=== PATIENT | male | born 1970 | race Asian ===

== ENCOUNTER 2022-05-31 16:10 | Inpatient (IN) | payer BC ==
--- NOTE | 2022-05-31 16:51 | ED ---
General Adult HPI - General Chief complaint: Neuro Symptoms/Deficit Stated complaint: neuro issue, sinus infection Time Seen by Provider: 05/31/22 16:15 Source: patient, family, RN notes reviewed, old records reviewed Mode of arrival: ambulatory Limitations: no limitations - History of Present Illness Initial comments: Patient is a 52-year-old male who presents emergency Department complaining of sinus infection, as well as neurological symptoms. He has a history of chronic sinus infections. Known small sinuses on the right. Has been doing with on again off again symptoms of sinus infection such as congestion, rhinorrhea for the last few months. Typical antibiotic should not improving his symptoms. May receive a balloon dilation by his ENT doctor Estephanie. However today at approximately 1 PM when he finally spoke and talked with someone at his home, his family noticed she was having some slurred speech as well as left sided facial droop. This is abnormal for him. States he awoke this morning feeling "different" noticed some sensory numbness over the left arm and he kind of ignored it. States however when he first spoke which was at approximately 1 PM he definitely had symptoms. Had not spoken before then. Did sleep until 10 or 11 AM. Last known well was 11 PM last night. Has no other acute complaints at this time. Denies any history of trauma to the head. Denies any blood thinner use. No other medical issues otherwise. Presents for further evaluation at this time. - Related Data Home Medications Medication Instructions Recorded Confirmed Azelastine HCl [Astelin Nasal 137 mcg NASAL DAILY 05/31/22 05/31/22 [place]] Loratadine [Claritin] 10 mg PO DAILY 05/31/22 05/31/22 Allergies Allergy/AdvReac Type Severity Reaction Status Date / Time levofloxacin [From Levaquin] Allergy Dyspnea Verified 05/31/22 17:13 Review of Systems ROS Statement: Those systems with pertinent positive or pertinent negative responses have been documented in the HPI. Review of Systems: CONST: Denies fever EYES: Denies blurry vision ENT: Endorses Sinus congestion C/V: Denies Chest pain RESP: Denies shortness of breath GI: Denies abdominal pain : Denies dysuria SKIN: Denies rash. MSK: Denies joint pain. NEURO: Denies headache ROS Other: All systems not noted in ROS Statement are negative. Past Medical History Past Medical History: No Reported History History of Any Multi-Drug Resistant Organisms: None Reported Additional Past Surgical History / Comment(s): sinus surgery Past Psychological History: No Psychological Hx Reported Smoking Status: Current every day smoker Past Alcohol Use History: None Reported Past Drug Use History: None Reported General Exam - General Exam Comments Initial Comments: General: Appears in no acute distress. HEAD: Normal with no signs of head trauma. EYES: PERRLA, EOMI, conjunctiva normal, no discharge. Pupils are 3 mm and equal bilaterally. ENT: Hearing grossly intact, normal oropharynx. RESPIRATORY: Clear breath sounds bilaterally. No wheezes, rales, or rhonchi. C/V: Regular rate and rhythm. S1 and S2 auscultated, no edema, peripheral puls es 2+ and intact throughout ABD: Abd is soft, nontender, nondistended EXT: Normal range of motion, no obvious deformity SKIN: No rashes or lesions observed on exposed skin. NEURO: Alert and oriented 4. No focal strength deficits. NIH is 4, with 1 point for left arm sensory deficits to light touch, 2 points for left-sided lower facial droop with sparing of the forehead, 1 point for dysarthria. Last known well was 2300 on 05/30/2022 Limitations: no limitations Course Vital Signs 05/31/22 05/31/22 05/31/22 16:12 16:41 17:11 Temperature 98.2 F Pulse Rate 100 98 85 Respiratory 20 18 17 Rate Blood Pressure 178/101 173/108 171/109 O2 Sat by Pulse 100 98 99 Oximetry 05/31/22 05/31/22 05/31/22 17:26 17:41 17:56 Temperature Pulse Rate 90 86 95 Respiratory 20 18 15 Rate Blood Pressure 172/109 185/115 O2 Sat by Pulse 100 99 100 Oximetry 05/31/22 05/31/22 05/31/22 18:11 18:26 19:30 Temperature Pulse Rate 96 91 77 Respiratory 20 19 18 Rate Blood Pressure 166/108 165/105 O2 Sat by Pulse 100 100 100 Oximetry 05/31/22 21:00 Temperature Pulse Rate 96 Respiratory 20 Rate Blood Pressure 158/96 O2 Sat by Pulse 99 Oximetry Medical Decision Making - Medical Decision Making Was pt. sent in by a medical professional or institution (, PA, PRESSURE SUPERVISOR, urgent care, hospital, or assisted...) When possible be specific @ -No Did you speak to anyone other than the patient for history (EMS, parent, family, police, friend...)? What history was obtained from this source @ -No Did you review nursing and triage notes (agree or disagree)? Why? @ -I reviewed and agree with nursing and triage notes Were old charts reviewed (outside hosp., previous admission, EMS record, old EKG, old radiological studies, urgent care reports/EKG's, assisted records)? Report findings @ -No old charts were reviewed Differential Diagnosis (chest pain, altered mental status, abdominal pain women, abdominal pain men, vaginal bleeding, weakness, fever, dyspnea, syncope, headache, dizziness, GI bleed, back pain, seizure, CVA, palpatations, mental health, musculoskeletal)? @ -Differential CVA Ischemic stroke, hemorrhagic stroke, brain tumor, sinus infection, atypical migraine, Wernicke's encephalopathy, seizure, multiple sclerosis, meningitis, encephalitis, hypoglycemia, Guillain-Medel, electrolytes disturbance, myasthenia gravis.... This is not meant to be an all-inclusive list EKG interpreted by me (3pts min.). @ -As above X-rays interpreted by me (1pt min.). @ -Chest x-ray revealed no obvious acute pulmonary process. Patient does have some stranding present, concern for possible fibrosis. No respiratory distress. CT interpreted by me (1pt min.). @ -CT brain reveals an old chronic left frontal infarct but no acute infarct. CT angiogram revealed no acute blockage or obstruction. U/S interpreted by me (1pt. min.). @ -None done What testing was considered but not performed or refused? (CT, X-rays, U/S, labs)? Why? @ -None What meds were considered but not given or refused? Why? @ -None Did you discuss the management of the patient with other professionals (professionals i.e. DrNika, PA, PRESSURE SUPERVISOR, lab, RT, psych nurse, psychotherapist social worker, photographs curator, teacher, weapons officer naval activity, egg caser)? Give summary @ -No Was smoking cessation discussed for >3mins.? @ -No Was critical care preformed (if so, how long)? @ -Yes, 35 minutes. Were there social determinants of health that impacted care today? How? (Homelessness, low income, unemployed, alcoholism, drug addiction, transportation, low edu. Level, literacy, decrease access to med. care, residential, rehab)? @ -No Was there de-escalation of care discussed even if they declined (Discuss DNR or withdrawal of care, Hospice)? DNR status @ -No What co-morbidities impacted this encounter? (DM, HTN, Smoking, COPD, CAD, Cancer, CVA, ARF, Chemo, Hep., AIDS, mental health diagnosis, sleep apnea, morbid obesity)? @ -None Was patient admitted / discharged? Hospital course, mention meds given and route, prescriptions, significant lab abnormalities, going to OR and other pertinent info. @ -Based on the patient's presentation and physical exam, he presents with strokelike symptoms. Last known was 11 PM last night on 05/30/22. Appears to have awoken this morning with the symptoms. NIH is 4. TPA will not be administered as risks far outweigh the benefits at this point. No significant past medical history otherwise mins chronic sinus infections. Code stroke was activated. Stroke labs were obtained. We will obtain CT imaging. Patient was in agreement with this plan. Vital signs are remarkable for mild hypertension with a blood pressure 178/101.This patient does have sparing of the forehead, I do not believe this is Guzman's palsy. I discussed the workup with neuro interventionalist flotation tank operator Dr. Astudillo. He was in agreement with the plan. Medical management if imaging is negative. Imaging is negative for any acute stroke or intracranial process. Radiology does see a remote area of possible old infarct in the left frontal lobe. Chronic sinusitis present. No acute infarcts observed. CT angiogram negative for any acute obstruction. Chest x-ray unremarkable. Patient's laboratory studies are remarkable for a mild leukocytosis of 12. Troponin undetectable. Glucose within normal limits. Covid, flu, RSV negative. Remainder of labs are within acceptable limits. On reevaluation, neuro exam is unchanged. Patient will be admitted to the hospital for neuro eval. He was in agreement this plan. Dr. Gross of neurology was consulted. He was given 325 mg of aspirin. We discussed his workup. He was in agreement this plan. I spoke with the admitting physician, BALTAZAR Renteria of [facility] who is admitting for Dr. Salmon. Accepted the patient. Undiagnosed new problem with uncertain prognosis? @ -No Drug Therapy requiring intensive monitoring for toxicity (Heparin, Nitro, Insulin, Cardizem)? @ -No Were any procedures done? @ -No Diagnosis/symptom? @ -CVA Acute, or Chronic, or Acute on Chronic? @ -Acute Uncomplicated (without systemic symptoms) or Complicated (systemic symptoms)? @ -Complicated Side effects of treatment? @ -none Exacerbation, Progression, or Severe Exacerbation] @ -no Poses a threat to life or bodily function? @ -Potentially - Lab Data Result diagrams: 05/31/22 16:50 05/31/22 17:13 Lab Results 05/31/22 05/31/22 05/31/22 Range/Units 16:42 16:50 17:13 WBC 12.5 H (3.8-10.6) k/uL RBC 5.91 H (4.30-5.90) m/uL Hgb 14.7 (13.0-17.5) gm/dL Hct 43.2 (39.0-53.0) % MCV 73.1 L (80.0-100.0) fL MCH 24.9 L (25.0-35.0) pg MCHC 34.1 (31.0-37.0) g/dL RDW 13.9 (11.5-15.5) % Plt Count 243 (150-450) k/uL MPV 7.9 Neutrophils % 61 % Lymphocytes % 29 % Monocytes % 5 % Eosinophils % 3 % Basophils % 1 % Neutrophils # 7.6 (1.3-7.7) k/uL Lymphocytes # 3.6 (1.0-4.8) k/uL Monocytes # 0.6 (0-1.0) k/uL Eosinophils # 0.3 (0-0.7) k/uL Basophils # 0.1 (0-0.2) k/uL Microcytosis Slight PT 10.4 (9.0-12.0) sec INR 1.0 (<1.2) APTT 24.3 (22.0-30.0) sec Sodium (137-145) mmol/L Potassium (3.5-5.1) mmol/L Chloride (98-107) mmol/L Carbon Dioxide (22-30) mmol/L Anion Gap mmol/L BUN (9-20) mg/dL Creatinine (0.66-1.25) mg/dL Est GFR (CKD-EPI)AfAm (>60 ml/min/1.73 sqM) Est GFR (CKD-EPI)NonAf (>60 ml/min/1.73 sqM) Glucose (74-99) mg/dL POC Glucose (mg/dL) 115 H (70-110) mg/dL POC Glu [employer] Court Clerk ID Jazzy Walker Calcium (8.4-10.2) mg/dL Total Bilirubin (0.2-1.3) mg/dL AST (17-59) U/L ALT (4-49) U/L Alkaline Phosphatase (38-126) U/L Creatine Kinase (55-170) U/L Troponin I (0.000-0.034) ng/mL Total Protein (6.3-8.2) g/dL Albumin (3.5-5.0) g/dL Influenza Type A (PCR) (Not Detectd) Influenza Type B (PCR) (Not Detectd) RSV (PCR) (Not Detectd) SARS-CoV-2 (PCR) (Not Detectd) 05/31/22 05/31/22 05/31/22 Range/Units 17:13 17:13 17:29 WBC (3.8-10.6) k/uL RBC (4.30-5.90) m/uL Hgb (13.0-17.5) gm/dL Hct (39.0-53.0) % MCV (80.0-100.0) fL MCH (25.0-35.0) pg MCHC (31.0-37.0) g/dL RDW (11.5-15.5) % Plt Count (150-450) k/uL MPV Neutrophils % % Lymphocytes % % Monocytes % % Eosinophils % % Basophils % % Neutrophils # (1.3-7.7) k/uL Lymphocytes # (1.0-4.8) k/uL Monocytes # (0-1.0) k/uL Eosinophils # (0-0.7) k/uL Basophils # (0-0.2) k/uL Microcytosis PT (9.0-12.0) sec INR (<1.2) APTT (22.0-30.0) sec Sodium 133 L (137-145) mmol/L Potassium 3.9 (3.5-5.1) mmol/L Chloride 103 (98-107) mmol/L Carbon Dioxide 22 (22-30) mmol/L Anion Gap 8 mmol/L BUN 11 (9-20) mg/dL Creatinine 1.02 (0.66-1.25) mg/dL Est GFR (CKD-EPI)AfAm >90 (>60 ml/min/1.73 sqM) Est GFR (CKD-EPI)NonAf 83 (>60 ml/min/1.73 sqM) Glucose 112 H (74-99) mg/dL POC Glucose (mg/dL) (70-110) mg/dL POC Glu Circuit Court Clerk ID Calcium 9.0 (8.4-10.2) mg/dL Total Bilirubin 0.4 (0.2-1.3) mg/dL AST 27 (17-59) U/L ALT 34 (4-49) U/L Alkaline Phosphatase 67 (38-126) U/L Creatine Kinase 170 (55-170) U/L Troponin I <0.012 (0.000-0.034) ng/mL Total Protein 6.5 (6.3-8.2) g/dL Albumin 3.7 (3.5-5.0) g/dL Influenza Type A (PCR) Not Detected (Not Detectd) Influenza Type B (PCR) Not Detected (Not Detectd) RSV (PCR) Not Detected (Not Detectd) SARS-CoV-2 (PCR) Not Detected (Not Detectd) - EKG Data -: EKG Interpreted by Me EKG Comments: 12-lead Electrocardiogram Interpretation Note EKG was reviewed and interpreted by myself. 12-lead ECG performed at 1628 is interpreted by me as revealing normal sinus rhythm at a rate of 89 beats per minute. [place] is normal. [place] interval is 144 ms, QRS duration is 84 ms, QTc is 378 ms.. There were no ST or T wave abnormalities to suggest myocardial ischemia or injury. R wave progression across the precordium was satisfactory. By my interpretation this EKG is non-diagnostic for acute ischemia. Critical Care Time Critical Care Time: Yes Total Critical Care Time: 35 Critical Care Time: Upon my evaluation, this patient had a high probability of imminent or life- threatening deterioration due to CVA, stroke activation, which required my direct attention, intervention, and personal management. I have personally provided 35 minutes of critical care time exclusive of time spent on separately billable procedures. Time includes review of laboratory data, radiology results, discussion with consultants, and monitoring for potential decompensation. Interventions were performed as documented in my note. Disposition Clinical Impression: Cerebrovascular accident (CVA) Disposition: ADMITTED IP TO THIS HOSP Condition: Stable Time of Disposition: 18:35
[2022-05-31 16:54] LABS: Glucose,Whole Blood 115 mg/dL (70-110)
[2022-05-31 17:00] LABS: Basophils # (A) 0.1 k/uL (0-0.2); Basophils % (A) 1 %; Eosinophils # (A) 0.3 k/uL (0-0.7); Eosinophils % (A) 3 %; HCT 43.2 % (39.0-53.0); HGB 14.7 gm/dL (13.0-17.5); Lymphocytes # (A) 3.6 k/uL (1.0-4.8); Lymphocytes % (A) 29 %; MCH 24.9 pg (25.0-35.0); MCHC 34.1 g/dL (31.0-37.0); MCV 73.1 fL (80.0-100.0); Mean Platelet Volume 7.9; Microcytosis Slight; Monocytes # (A) 0.6 k/uL (0-1.0); Monocytes % (A) 5 %; Neutrophils # (A) 7.6 k/uL (1.3-7.7); Neutrophils % (A) 61 %; Platelet Count 243 k/uL (150-450); RBC 5.91 m/uL (4.30-5.90); RDW 13.9 % (11.5-15.5); WBC 12.5 k/uL (3.8-10.6)
--- NOTE | 2022-05-31 17:10 | CT ---
EXAMINATION TYPE: CT brain wo con for TPA DATE OF EXAM: 05/31/2022 COMPARISON: None HISTORY: facial numbness, slurred speech, left hand numbness CT DLP: 1122.6 mGycm Automated exposure control for dose reduction was used. FINDINGS: The ventricles, basal cisterns and sulci over convexities are within normal limits and there is no ma ss effect or shift of the midline structures. There is a 8mm remote lacunar infarct in the deep left frontal white matter. There is no acute intra or extra-axial hemorrhage. The posterior fossa including the brainstem, fourth ventricle and cerebellar pontine angles are gross ly normal. The intraorbital contents appear normal and symmetric. There are air-fluid levels within the maxillary sinuses suggesting acute maxillary sinusitis. There i s mucosal thickening in multiple ethmoid air cells. The mastoid air cells are well aerated. IMPRESSION: 1. No acute bleed or mass effect. 2. Remote lacunar white matter infarct in the left frontal lobe 3. Acute and chronic sinusitis
--- NOTE | 2022-05-31 17:13 | XR ---
EXAMINATION TYPE: XR chest 2V DATE OF EXAM: 05/31/2022 COMPARISON: NONE HISTORY: Altered mental status TECHNIQUE: Frontal and lateral views of the chest are obtained. FINDINGS: There is moderate increased interstitial markings throughout the lungs consistent with either mild pu lmonary vascular congestion or chronic interstitial changes. There is no prior study for comparison. The heart size is normal. There is no airspace consolidation. There is no pleural effusion or pneumothorax. The osseous structu res are intact. IMPRESSION: Moderate diffuse interstitial opacity consistent with mild pulmonary vascular congestion or chronic interstitial changes. Clinical correlation recommended. There is no prior study for ren jamie.
--- NOTE | 2022-05-31 17:24 | CT ---
EXAMINATION TYPE: CT angio head neck DATE OF EXAM: 05/31/2022 HISTORY: facial numbness, slurred speech, left hand numbness COMPARISON: None CT DLP: 450.5 mGycm. Automated Exposure Control for Dose Reduction was Utilized. TECHNIQUE: CTA scan of the head and neck is performed with IV Contrast, patient injected with 65 mL of Isovue 370, axial images are obtained, coronal and sagittal reformatted images are reviewed. 3D re constructed images are created on an independent workstation and reviewed. FINDINGS: The brachiocephalic origins are widely patent without significant stenosis. The common and internal carotid arteries within the neck are widely patent and there is no significan t stenosis. Intracranially, there is no sizable aneurysm sac, vascular malformation or segmental occlusion. Ration: No significant abnormality seen of the arterial circulation within the head or neck. NASCET criteria was used in interpretation of this exam?
[2022-05-31 17:33] LABS: ALT 34 U/L (4-49); AST 27 U/L (17-59); African American GFR (CKD) >90 (>60 ml/min/1.73 sqM); Albumin 3.7 g/dL (3.5-5.0); Alkaline Phosphatase 67 U/L (38-126); Anion Gap 8 mmol/L; Blood Urea Nitrogen 11 mg/dL (9-20); Carbon Dioxide 22 mmol/L (22-30); Chloride 103 mmol/L (98-107); Creatine Kinase 170 U/L (55-170); Glucose 112 mg/dL (74-99); Non-African American GFR(CKD) 83 (>60 ml/min/1.73 sqM); Partial Thromboplastin Time 24.3 sec (22.0-30.0); Potassium 3.9 mmol/L (3.5-5.1); Prothrombin Time 10.4 sec (9.0-12.0); Sodium 133 mmol/L (137-145); Total Bilirubin 0.4 mg/dL (0.2-1.3); Total Protein 6.5 g/dL (6.3-8.2)
[2022-05-31] MEDS ORDERED: ASPIRIN 325 MG TAB PO STA (17:48)
[2022-06-01 11:09] LABS: Chol/HDL Ratio 5.29 Ratio; LDL Cholesterol,Calculated 137.8 mg/dL (0.0-131.0)
--- NOTE | 2022-06-01 12:50 | P.CNNES ---
History of Present Illness Consult date: 06/01/22 Requesting physician: Dustin Paulson Reason for Consult: stroke/tia History of Present Illness: This is a 52-year-old gentleman with history of ongoing chronic sinusitis, COVID-19 infection who presented emergency department because of the speech difficulty and left arm weakness. Patient stated that the yesterday he woke up around 11am and last normal was at 11pm and then when he woke up he did not speak with anybody and then 2 hours later (around 1pm) when he was speaking to his family members seems that he was having the difficulty talking that was coming on and off. He also noticed left facial droop and numbness over the left arm. It seems that he presented to our facility on 05/31/2022 around 1610. He also noticed his entire right side of face is numb. He denies any history of strokes that he is aware of or and denies any be on any antiplatelets or anticoagulation. He stated that his grandmother had stroke but an old age. Denies any hypercoagulable disorder that he has or family has that he is aware of. Denies any history of A. fib or flutter. Denies any illicit drug use. He does smoke about 4-5 cigarettes daily. He stated that he is suffering the with this recurrent sinus infection going on for years as relapsing and he is pending to hopefully have surgery for sinusitis. He had a surgery in 2006. He's been on antibiotic multiple times for his sinusitis Some other workup during his hospital visit consisted of: Initial serum glucose is 112. NIH stroke Camacho the ED is 4 in the points were 1 for left arm sensory deficit to for left facial droop and [address] of the head is reported as no acute bleed or mass effect. Remote lacunar white matter infarct in the left frontal lobe. Acute on chronic sinusitis. I personally reviewed the CT and I agree there is no acute subacute ischemic stroke. I do agree that the patient has an old left frontal that seems subcorti vladimir stroke. No bleed. CT angiography of the head and neck was reported as no significant abnormality seen of the arterial circulation within the head or neck. Code stroke was activated by the ED team. The ED team spoke with the stroke attending (Dr. Hubbard) and no IV tpa since outside window and the risk outweigh the benefit. He was wok-up stroke. Lipid panel is a triglyceride of 114, cholesterol is 198, LDLs 137 HDL is 37 SARS-COV-2, RSV, Influenza A/B are negative. Review of Systems Review of system: The 12 point system was reviewed and apparent positive and negative per HPI. Past Medical History Past Medical History: No Reported History Additional Past Medical History / Comment(s): chronic sinus infection History of Any Multi-Drug Resistant Organisms: None Reported Past Surgical History: No Surgical Hx Reported Additional Past Surgical History / Comment(s): planning for sinus surgery Past Anesthesia/Blood Transfusion Reactions: No Reported Reaction Past Psychological History: No Psychological Hx Reported Smoking Status: Current every day smoker Past Alcohol Use History: None Reported Past Drug Use History: None Reported - Past Family History Father Family Medical History: CVA/TIA, Diabetes Mellitus Mother Family Medical History: Diabetes Mellitus, Renal Disease Medications and Allergies Home Medications Medication Instructions Recorded Confirmed Type Azelastine HCl [Astelin Nasal 137 mcg NASAL DAILY 05/31/22 05/31/22 History [place]] Loratadine [Claritin] 10 mg PO DAILY 05/31/22 05/31/22 History Allergies Allergy/AdvReac Type Severity Reaction Status Date / Time levofloxacin [From Levaquin] Allergy Dyspnea Verified 05/31/22 17:13 Physical Examination - Vital Signs Vital Signs: Vital Signs Temp Pulse Pulse Resp BP BP Pulse Ox 06/01/22 08:10 97.9 F 85 18 174/87 97 06/01/22 06:21 92 16 145/98 100 06/01/22 05:04 83 16 150/98 97 06/01/22 03:18 80 16 142/96 100 06/01/22 00:00 92 16 165/100 100 05/31/22 21:00 96 20 158/96 99 05/31/22 19:30 77 18 165/105 100 05/31/22 18:26 91 19 166/108 100 05/31/22 18:11 96 20 100 05/31/22 17:56 95 15 185/115 100 05/31/22 17:41 86 18 99 05/31/22 17:26 90 20 172/109 100 05/31/22 17:11 85 17 171/109 99 05/31/22 16:41 98 18 173/108 98 05/31/22 16:12 98.2 F 100 20 178/101 100 Intake and Output 05/31/22 06/01/22 06/01/22 22:59 06:59 14:59 Other: Weight 72.575 kg 72.575 kg GENERAL: The patient is lying in bed and is not in acute distress. But is in tears regarding his condition. CHEST: The heart rate is regular rate rhythm. No murmurs to auscultation. LUNG: Clear to auscultation bilaterally no wheezing noted throughout. Not labored breathing. ABDOMEN/GI: Bowel sounds present in all 4 quadrants. No tenderness to palpation throughout. NEUROLOGICAL: Higher mental function: The patient is awake, alert, oriented to self, place and time. Patient is following commands. No aphasia and no neglect. Cranial nerves: The pupils are round, equal and reactive to light and accommodation. Visual shane are full to confrontation throughout. Has some weakness in mainlining in closing his left eye with resistance. Extraocular movement is intact no nystagmus is noted. Facial sensation is normal to touch throughout. The facial strength is moderate left facial weakness. Hearing is normal bilaterally to hand rub. Tongue is midline and moved [id number] without any difficulty. +ve mild to moderate dysarthria. Shoulder shrug is normal bilaterally. Motor: The strength is left upper is 4 to 4+, left hand health care administrator is 4+ to 5-. Otherwise 5 over 5 throughout. Normal tone and bulk. Cerebellum: Normal finger to nose bilaterally. Sensation: Sensation is normal to touch throughout. Reflexes (right/left): 2+. Plantars are mute bilaterally. Results - Laboratory Findings CBC and BMP: 05/31/22 16:50 05/31/22 17:13 Abnormal Lab Findings: Abnormal Labs 05/31/22 05/31/22 05/31/22 16:42 16:50 17:13 WBC 12.5 H RBC 5.91 H MCV 73.1 L MCH 24.9 L Sodium 133 L Glucose 112 H POC Glucose (mg/dL) 115 H LDL Cholesterol, Calc HDL Cholesterol 06/01/22 07:44 WBC RBC MCV MCH Sodium Glucose POC Glucose (mg/dL) LDL Cholesterol, Calc 137.8 H HDL Cholesterol 37.40 L Assessment and Plan Assessment: This is a 52-year-old young gentleman who has a chronic ongoing the sinusitis who presented to the emergency department because of left facial weakness dysarthria and left upper extremity weakness with numbness as well as right facial numbness. Acute ischemic stroke (on examination has left facial droop, dysarthria and left upper extremity weakness). No IV tpa since outside window History of old small left frontal stroke (patient unaware) Ongoing chronic sinusitis History of COVID-19 infection in the end of October 2021 Plan: In the ED the patient the was given aspirin 325 once. I started the patient on aspirin 81 mg as well as Plavix 75 mg (both are new). Started on Lipitor 40mg qhs for secondary stroke prophylaxis. Ordered MRI the brain, 2-D echo, HbA1c. Ordered young stroke work-up (VWF, protein C/S, homocysteine, antithrombin III, factor V leiden, prothrombin 20862, ESR, CRP, MARIANO) and event monitor for 30 days. PT, OT and HEAD CUSTODIAN are consulted Continue neuro checks On cardiac monitoring I started the patient on Zoloft since was very tearful and seemed in depressed stated. We'll defer the rest of the medical management the primary team For DVT prophylaxis start the patient on subcu heparin 5000 units every 8 hours The plan is discussed with patient and his nurse. Thank you for the consultation. Dr. Rosas will start neurology service tomorrow A.M. Time with Patient: Greater than 30
[2022-06-01] MEDS: ASPIRIN 81 MG PO SCH (15:56)
[2022-06-01] MEDS: SERTRALINE 25 MG TAB PO SCH (15:56)
[2022-06-01] MEDS: CLOPIDOGREL 75 MG TAB PO SCH (15:56)
[2022-06-01] MEDS: HEPARIN SODIUM,PORCINE/PF 5,000 UNIT/0.5 ML SYRINGE SQ SCH (15:56)
--- NOTE | 2022-06-01 16:06 | P.HPIM ---
History of Present Illness H&P Date: 06/01/22 Chief Complaint: Slurred speech/left-sided facial droop 52-year-old male who presents emergency Department complaining of sinus infection, as well as neurological symptoms. He has a history of chronic sinus infections. Known small sinuses on the right. Has been doing with on again off again symptoms of sinus infection such as congestion, rhinorrhea for the last few months. Typical antibiotic should not improving his symptoms. May receive a balloon dilation by his ENT doctor Estephanie. However today at approximately 1 PM when he finally spoke and talked with someone at his home, his family noticed she was having some slurred speech as well as left sided faci al droop. This is abnormal for him. States he awoke this morning feeling "different" noticed some sensory numbness over the left arm and he kind of ignored it. States however when he first spoke which was at approximately 1 PM he definitely had symptoms. Had not spoken before then. Did sleep until 10 or 11 AM. Last known well was 11 PM last night. Has no other acute complaints at this time. Denies any history of trauma to the head. Denies any blood thinner use. No other medical issues otherwise. Presents for further evaluation at this time. NIH stroke in the ED is 4 in the points were 1 for left arm sensory deficit to for left facial droop and [address] of the head is reported as no acute bleed or mass effect. Remote lacunar white matter infarct in the left frontal lobe. Acute on chronic sinusitis. CT angiography of the head and neck was reported as no significant abnormality seen of the arterial circulation within the head or neck. Code stroke was activated by the ED team. The ED team spoke with the stroke attending (Dr. Hubbard) and no IV tpa since outside window and the risk outweigh the benefit. He was wok-up stroke. Lipid panel is a triglyceride of 114, cholesterol is 198, LDLs 137 HDL is 37 SARS-COV-2, RSV, Influenza A/B are negative. Review of Systems REVIEW OF SYSTEMS: CONSTITUTIONAL: No fever, no malaise, no fatigue. HEENT: No recent visual problems or hearing problems. Denied any sore throat. CARDIOVASCULAR: No chest pain, orthopnea, PND, no palpitations, no syncope. PULMONARY: No shortness of breath, no cough, no hemoptysis. GASTROINTESTINAL: No diarrhea, no nausea, no vomiting, no abdominal pain. NEUROLOGICAL: No headaches, no weakness, no numbness. HEMATOLOGICAL: Denies any bleeding or petechiae. GENITOURINARY: Denies any burning micturition, frequency, or urgency. MUSCULOSKELETAL/RHEUMATOLOGICAL: Denies any joint pain, swelling, or any muscle pain. ENDOCRINE: Denies any polyuria or polydipsia. The rest of the 14-point review of systems is negative. Past Medical History Past Medical History: No Reported History Additional Past Medical History / Comment(s): chronic sinus infection History of Any Multi-Drug Resistant Organisms: None Reported Past Surgical History: No Surgical Hx Reported Additional Past Surgical History / Comment(s): planning for sinus surgery Past Anesthesia/Blood Transfusion Reactions: No Reported Reaction Past Psychological History: No Psychological Hx Reported Smoking Status: Current every day smoker Past Alcohol Use History: None Reported Past Drug Use History: None Reported - Past Family History Father Family Medical History: CVA/TIA, Diabetes Mellitus Mother Family Medical History: Diabetes Mellitus, Renal Disease Medications and Allergies Home Medications Medication Instructions Recorded Confirmed Type Azelastine HCl [Astelin Nasal 137 mcg NASAL DAILY 05/31/22 05/31/22 History Goff] Loratadine [Claritin] 10 mg PO DAILY 05/31/22 05/31/22 History Allergies Allergy/AdvReac Type Severity Reaction Status Date / Time levofloxacin [From Levaquin] Allergy Dyspnea Verified 05/31/22 17:13 Physical Exam Vitals: Vital Signs Temp Pulse Pulse Resp BP BP Pulse Ox 06/01/22 08:10 97.9 F 85 18 174/87 97 06/01/22 06:21 92 16 145/98 100 06/01/22 05:04 83 16 150/98 97 06/01/22 03:18 80 16 142/96 100 06/01/22 00:00 92 16 165/100 100 05/31/22 21:00 96 20 158/96 99 05/31/22 19:30 77 18 165/105 100 05/31/22 18:26 91 19 166/108 100 05/31/22 18:11 96 20 100 05/31/22 17:56 95 15 185/115 100 05/31/22 17:41 86 18 99 05/31/22 17:26 90 20 172/109 100 05/31/22 17:11 85 17 171/109 99 05/31/22 16:41 98 18 173/108 98 05/31/22 16:12 98.2 F 100 20 178/101 100 Intake and Output 05/31/22 06/01/22 06/01/22 22:59 06:59 14:59 Other: Weight 72.575 kg 72.575 kg PHYSICAL EXAMINATION: GENERAL: The patient is alert and oriented x3, not in any acute distress. Well developed, well nourished. HEENT: Pupils are round and equally reacting to light. EOMI. No scleral icterus. No conjunctival pallor. Normocephalic, atraumatic. No pharyngeal erythema. No thyromegaly. CARDIOVASCULAR: S1 and S2 present. No murmurs, rubs, or gallops. PULMONARY: Chest is clear to auscultation, no wheezing or crackles. ABDOMEN: Soft, nontender, nondistended, normoactive bowel sounds. No palpable organomegaly. MUSCULOSKELETAL: No joint swelling or deformity. EXTREMITIES: No cyanosis, clubbing, or pedal edema. NEUROLOGICAL: Gross neurological examination did not reveal any focal deficits. SKIN: No rashes. Results CBC & Chem 7: 05/31/22 16:50 05/31/22 17:13 Labs: Abnormal Lab Results - Last 24 Hours (Table) 05/31/22 05/31/22 05/31/22 Range/Units 16:42 16:50 17:13 WBC 12.5 H (3.8-10.6) k/uL RBC 5.91 H (4.30-5.90) m/uL MCV 73.1 L (80.0-100.0) fL MCH 24.9 L (25.0-35.0) pg Sodium 133 L (137-145) mmol/L Glucose 112 H (74-99) mg/dL POC Glucose (mg/dL) 115 H (70-110) mg/dL Thrombosis Risk Factor Assmnt - Choose All That Apply Each Factor Represents 1 point: Age 41-60 years Thrombosis Risk Factor Assessment Total Risk Factor Score: 1 Thrombosis Risk Factor Assessment Level: Low Risk Assessment and Plan Assessment: 1. Acute ischemic stroke as evidenced by left-sided facial droop, dysarthria and left upper extremity weakness - Patient was evaluated by attending neurology and was found to be outside the window for TPA - Patient received aspirin 325 mg 1 in ED; has been evaluated by neurology and is recommended to aspirin 81 mg daily along with Plavix 75 mg daily - Patient is placed on Lipitor 40 mg by mouth daily at bedtime secondary prophylaxis Orders have been placed for MRI of the brain, 2-D echo and HbA1c -- Ordered young stroke work-up (VWF, protein C/S, homocysteine, antithrombin III, factor V leiden, prothrombin 55098, ESR, CRP, MARIANO) and event monitor for 30 days. PT, OT and BOLT CUTTER are consulted Continue neuro checks On cardiac monitoring Patient has been started on Zoloft since was very tearful and seemed in depressed stated. For DVT prophylaxis start the patient on subcu heparin 5000 units every 8 hours 2. Old left frontal stroke; patient is unaware of the occurrence 3. Acute on chronic sinusitis; we will add Augmentin 875 mg daily 4. History of cord 19 infection in October 2021 5. Seasonal ALLERGY; patient remains on loratadine 10 mg daily and Astelin nasal spray
[2022-06-01 16:40] LABS: African American GFR (CKD) >90 (>60 ml/min/1.73 sqM); Anion Gap 3 mmol/L; Blood Urea Nitrogen 10 mg/dL (9-20); Calcium 8.9 mg/dL (8.4-10.2); Carbon Dioxide 25 mmol/L (22-30); Chloride 109 mmol/L (98-107); Glucose 127 mg/dL (74-99); Non-African American GFR(CKD) >90 (>60 ml/min/1.73 sqM); Potassium 4.3 mmol/L (3.5-5.1); Sodium 137 mmol/L (137-145)
[2022-06-01] MEDS: AMOXIC-POT CLAV 875-125MG 1 EACH TAB PO SCH (21:11)
[2022-06-01] MEDS: ATORVASTATIN 40 MG TAB PO SCH (21:11)
[2022-06-02] MEDS: HEPARIN SODIUM,PORCINE/PF 5,000 UNIT/0.5 ML SYRINGE SQ SCH ×3 (00:04→18:31)
[2022-06-02 09:15] LABS: Basophils # (A) 0.1 k/uL (0-0.2); Basophils % (A) 1 %; Eosinophils # (A) 0.2 k/uL (0-0.7); Eosinophils % (A) 2 %; HCT 46.9 % (39.0-53.0); HGB 15.6 gm/dL (13.0-17.5); Lymphocytes # (A) 2.4 k/uL (1.0-4.8); Lymphocytes % (A) 24 %; MCH 24.4 pg (25.0-35.0); MCHC 33.3 g/dL (31.0-37.0); MCV 73.1 fL (80.0-100.0); Mean Platelet Volume 7.1; Microcytosis Slight; Monocytes # (A) 0.3 k/uL (0-1.0); Monocytes % (A) 3 %; Neutrophils # (A) 7.1 k/uL (1.3-7.7); Neutrophils % (A) 70 %; Platelet Count 271 k/uL (150-450); RBC 6.41 m/uL (4.30-5.90); RDW 13.9 % (11.5-15.5); WBC 10.2 k/uL (3.8-10.6)
[2022-06-02 09:24] LABS: Calcium 9.1 mg/dL (8.4-10.2); Potassium 4.3 mmol/L (3.5-5.1)
[2022-06-02] MEDS: AMOXIC-POT CLAV 875-125MG 1 EACH TAB PO SCH ×2 (09:59→21:02)
[2022-06-02] MEDS: ASPIRIN 81 MG PO SCH (09:59)
[2022-06-02] MEDS: SERTRALINE 25 MG TAB PO SCH (09:59)
[2022-06-02] MEDS: CLOPIDOGREL 75 MG TAB PO SCH (09:59)
--- NOTE | 2022-06-02 10:58 | CA ---
Transthoracic Echo Report Name: Paolo Hebert Age: 52 Gender: M : 1970 Exam Date: 06/02/2022 08:05 Exam Location: [facility] [facility] Ht (in): 67 Wt (lb): 160 Ordering Physician: Eddy Gross MD Attending/Referring Phys: Architecture Department Chair Yane Vu RDCS Procedure CPT: Indications: stroke. bubble study. Cardiac Hx: Technical Quality: Good Contrast 1: Total Dose (mL): Contrast 2: Total Dose (mL): MEASUREMENTS (Male / Female) Normal Values 2D ECHO LV Diastolic Diameter PLAX 3.6 cm 4.2 - 5.9 / 3.9 - 5.3 cm LV Systolic Diameter PLAX 2.5 cm IVS Diastolic Thickness 1.3 cm 0.6 - 1.0 / 0.6 - 0.9 cm LVPW Diastolic Thickness 1.4 cm 0.6 - 1.0 / 0.6 - 0.9 cm LV Relative Wall Thickness 0.8 RV Internal Dim ED PLAX 2.7 cm LA Systolic Diameter LX 3.1 cm 3.0 - 4.0 / 2.7 - 3.8 cm LV Diastolic Volume MOD 4C 108.0 cm??? LV Systolic Volume MOD 4C 53.8 cm??? LV Ejection Fraction MOD 4C 50.2 % LV Diastolic Length 4C 8.5 cm LV Systolic Length 4C 7.1 cm LV Diastolic Volume MOD 2C 78.9 cm??? LV Systolic Volume MOD 2C 41.9 cm??? LV Ejection Fraction MOD 2C 47.0 % LV Diastolic Length 2C 9.1 cm LV Systolic Length 2C 7.4 cm LA Volume 29.0 cm??? 18 - 58 / 22 - 52 cm??? M-MODE Aortic Root Diameter MM 3.4 cm MV E Point Septal Separation 0.3 cm AV Cusp Separation MM 2.4 cm DOPPLER AV Peak Velocity 119.8 cm/s AV Peak Gradient 5.7 mmHg MV Area PHT 4.1 cm??? Mitral E Point Velocity 77.2 cm/s Mitral A Point Velocity 82.6 cm/s Mitral E to A Ratio 0.9 MV Deceleration Time 183.5 ms MV E' Velocity 6.2 cm/s Mitral E to MV E' Ratio 12.4 FINDINGS Left Ventricle Left ventricular ejection fraction is estimated at 55-60 %. Left ventricular cavity size normal. Mild to moderate concentric left ventricular hypertrophy. No obvious regional wall motion abnormalities. Right Ventricle Normal right ventricular size and function. No TR unable to estimate the right ventricular systolic pressure. Right Atrium Normal right atrial size. Negative saline bubbles study Left Atrium Normal left atrial size. Mitral Valve Structurally normal mitral valve. No evidence for mitral valve prolapse. Aortic Valve Trileaflet aortic valve. No aortic valve stenosis or regurgitation. Tricuspid Valve Structurally normal tricuspid valve. No tricuspid stenosis, regurgitation or prolapse. Pulmonic Valve Structurally normal pulmonic valve. No pulmonic regurgitation. Pericardium Normal pericardium. No pericardial effusion. Aorta Normal size aortic root and proximal ascending aorta. CONCLUSIONS Normal LV size and systolic function with mild to moderate concentric LVH. No significant abnormality on the Doppler exam. No pericardial effusion Previewed by: Dr. Lizette Quinonez MD (Electronically Signed) Final Date: 02 June 2022 10:57
--- NOTE | 2022-06-02 11:53 | P.PN ---
Subjective Progress Note Date: 06/02/22 Patient was initially seen by Dr. Eddy Gross. Please refer to his consultation note for details. Patient is a 52-year-old right-handed male with acute stroke, manifesting with left facial droop, dysarthria and left arm weakness. Patient has been placed on dual antiplatelet medication. Patient states that he woke up at 11 AM and was feeling fine. He just did not speak, but started working on the laptop computer. At 1 PM when he started talking to his son, when he noticed slurred speech and droopy face. He came to the ER at 4:16 PM. Patient was considered not a candidate for TPA, as the time of onset of symptoms was uncertain. Patient has smoked one third pack per day for 10-15 years. He also has chronic sinusitis, following up with ENT specialist for possible ENT surgery. Patient states that he suffered from work-related injury to the low back years ago. He see a chiropractor, who usually massages his neck and the shoulder region. He does not get usually adjustments to the neck. Objective - Vital Signs Vital signs: Vital Signs Temp 98.1 F 06/02/22 04:00 Pulse 99 06/02/22 04:00 Resp 18 06/02/22 04:00 BP 177/119 06/02/22 04:00 Pulse Ox 99 06/02/22 04:00 FiO2 Intake & Output 06/01/22 06/02/22 06/02/22 18:59 06:59 18:59 Intake Total 598 Balance 598 Weight 72.575 kg Intake: Oral 598 Other: # Voids 2 1 - Exam Patient is a middle aged male, very pleasant, in no acute distress. Patient is alert awake oriented to time place and person. Patient has mild dysarthria, but no aphasia. Patient can name and repeat very well. Attention, concentration and fund of knowledge is adequate. On cranial nerve examination, pupils are equal, round and reacting to light, visual shane are full on confrontation, with no neglect on double simultaneous stimulation. Extraocular muscles are intact with no nystagmus. Patient has left facial weakness, central type, moderate. His tongue protrudes to the midli ne. Palatal elevation and sensation normal, hearing and shoulder shrug normal, facial sensation normal. On muscle strength testing, there is left-sided pronation, no drift. The strength is normal in arms and legs distally and proximally, except left paper folding machine operator, which is 5-. Deep tendon reflexes are hypoactive, and plantars are flat bilaterally. Sensory to touch is equal with no neglect on double simultaneous stimulation. Cerebellar function showed no ataxia for pqzyld-[id number] testing. No dysd iadochokinesia. No ataxia for hime-wd-hobl testing on either side. Tone and bulk of muscles normal. Gait deferred.. On general examination, there is no carotid bruit or murmur, S1-S2 audible. [facility]a [facility] is clear on consultation. Abdomen is soft nontender. No organomegaly, bowel sounds present. Peripheral pulses are present. No edema. - Labs CBC & Chem 7: 06/02/22 08:53 06/02/22 08:25 Labs: Abnormal Lab Results - Last 24 Hours (Table) 05/31/22 06/01/22 06/01/22 Range/Units 16:50 07:44 07:44 RBC (4.30-5.90) m/uL MCV (80.0-100.0) fL MCH (25.0-35.0) pg Chloride 109 H (98-107) mmol/L Glucose 127 H (74-99) mg/dL Hemoglobin A1c 6.7 H (0.0-6.0) % LDL Cholesterol, Calc 137.8 H (0.0-131.0) mg/dL HDL Cholesterol 37.40 L (40.00-60.00) mg/dL 06/02/22 06/02/22 Range/Units 08:25 08:53 RBC 6.41 H (4.30-5.90) m/uL MCV 73.1 L (80.0-100.0) fL MCH 24.4 L (25.0-35.0) pg Chloride (98-107) mmol/L Glucose 183 H (74-99) mg/dL Hemoglobin A1c (0.0-6.0) % LDL Cholesterol, Calc (0.0-131.0) mg/dL HDL Cholesterol (40.00-60.00) mg/dL Assessment and Plan Assessment: This is a 52-year-old young gentleman who has a chronic ongoing sinusitis who presented to the emergency department because of left facial weakness dysarthria and left upper extremity weakness with numbness as well as left facial numbness. Acute ischemic stroke (on examination has left facial droop, dysarthria and left upper extremity weakness). No IV tpa since outside window History of old small left frontal stroke (patient unaware) Ongoing chronic sinusitis History of COVID-19 infection in the end of October 2021 Plan: In the ED the patient the was given aspirin 325 once. Patient was subsequently started on aspirin 81 mg as well as Plavix 75 mg (both are new). Lipid panel with cholesterol 198, LDL 137.8, HDL 37.4, triglycerides were 14. Agree with starting Lipitor 40mg qhs for secondary stroke prophylaxis. Await MRI the brain 2-D echo revealed mild to moderate concentric LVH, EF is 55-60%. Left atrial size is normal. No valvular abnormalities. HbA1c 6.7. Patient probably has new-onset diabetes. Patient was recommended to completely stop sweets and candies, and repeat A1c in 3 months. Await young stroke work-up (VWF, protein C/S, homocysteine, antithrombin III, factor V leiden, prothrombin 34780, ESR, CRP, MARIANO) and event monitor for 30 days. PT, OT and SEED CLEANING MANAGER are consulted CTA of head and neck revealed no significant angiographic abnormalities Continue neuro checks On cardiac monitoring Dr. Gross started the patient on Zoloft since was very tearful and seemed in depressed state. We'll defer the rest of the medical management the primary team For DVT prophylaxis start the patient on subcu heparin 5000 units every 8 hours
--- NOTE | 2022-06-02 14:47 | P.PN ---
Subjective Progress Note Date: 06/02/22 This is a 52-year-old gentleman admitted with acute stroke, outside the window for TPA. Continues on dual antiplatelet therapy. Mild dysarthria; patient states his symptoms/presentation are about the same as yesterday, less facial drooping, less facial numbness- fluctuating.Denies chest pain, palpitations or shortness of breath. Denies lightheadedness, dizziness or focal deficits. Objective - Vital Signs Vital signs: Vital Signs Temp 98.1 F 06/02/22 04:00 Pulse 99 06/02/22 04:00 Resp 18 06/02/22 04:00 BP 177/119 06/02/22 04:00 Pulse Ox 99 06/02/22 04:00 FiO2 Intake & Output 06/01/22 06/02/22 06/02/22 18:59 06:59 18:59 Intake Total 598 200 Balance 598 200 Weight 72.575 kg Intake: Oral 598 200 Other: # Voids 2 1 - Exam GENERAL: Sitting up in bed, no acute distress. Pleasant, teary-eyed at times with dysarthria-mild, HEENT: Normocephalic, atraumatic. Pupils are round and equally reacting to light. EOMI. No scleral icterus. No conjunctival pallor. Left facial droop. CARDIOVASCULAR: S1 and S2 present. No murmurs, rubs, or gallops. PULMONARY: Unlabored, Chest is clear to auscultation, no wheezing or crackles. ABDOMEN: Soft, nontender, nondistended, normoactive bowel sounds. No palpable organomegaly. EXTREMITIES: No cyanosis, clubbing, or pedal edema. NEUROLOGICAL: Alert and oriented 3, left facial droop, mild dysarthria, minimal decreased weakness left upper extremity SKIN: No rashes. - Labs CBC & Chem 7: 06/02/22 08:53 06/02/22 08:25 Labs: Abnormal Lab Results - Last 24 Hours (Table) 05/31/22 06/01/22 06/02/22 Range/Units 16:50 07:44 08:25 RBC (4.30-5.90) m/uL MCV (80.0-100.0) fL MCH (25.0-35.0) pg Chloride 109 H (98-107) mmol/L Glucose 127 H 183 H (74-99) mg/dL Hemoglobin A1c 6.7 H (0.0-6.0) % 06/02/22 Range/Units 08:53 RBC 6.41 H (4.30-5.90) m/uL MCV 73.1 L (80.0-100.0) fL MCH 24.4 L (25.0-35.0) pg Chloride (98-107) mmol/L Glucose (74-99) mg/dL Hemoglobin A1c (0.0-6.0) % Assessment and Plan Assessment: Acute CVA, left facial droop, dysarthria, left upper extremity weakness. Chronic small left frontal stroke Chronic sinusitis Diabetes mellitus, hemoglobin A1c 6.7, possibly new onset. COVID-19 infection,11/21 Depression-Zoloft initiated Ongoing nicotine dependence Plan: Continue on current medication regime ,monitoring and symptomatic treatment. Young stroke workup in progress, MRI pending. Prognosis guarded given multiple complex medical issues.
[2022-06-02 16:18] LABS: Homocysteine 9.26 umol/L (4.00-14.00)
--- NOTE | 2022-06-02 17:10 | MR ---
EXAMINATION TYPE: MR brain wo/w con DATE OF EXAM: 06/02/2022 4:56 PM CLINICAL INDICATION:Male, 52 years old with history of stroke. Left facial droop and left sided weak ness; SPEECH LOSS AND LT SIDED FACE NUMBNESS 3 DAYS AGO COMPARISON: CT brain 05/31/2022 TECHNIQUE: Multi planar, multi sequence imaging was performed through the brain including: T1, T2, In version recovery, susceptibility weighted imaging and gradient echo imaging and Diffusion weighted im aging. The patient was then given intravenous contrast and multi planar, T1 fat-saturation images wer e obtained. IV Contrast: 7ML cc Gadavist FINDINGS: Acute/subacute CVA involving the right santiago radiata/right basal ganglia restricted diffusion presen t. Remote left frontal lobe high T2 signal radiata suspected prominent perivascular space. The self-w evelia junctions, ventricular system, basal cisterns appear unremarkable. Intracranial arterial flow v oids are maintained. Midline structures show no abnormality. Scattered foci of high T2 signal intensi ty are seen within the periventricular white matter. The susceptibility weighted images do not reveal any evidence for micro-hemorrhage. After administration of gadolinium, no abnormal enhancement is se en. The bone marrow signal is within normal limits. Paranasal sinuses and mastoid air cells: Mild scattered paranasal sinus disease. Visualized orbits: Orbital contents are intact. IMPRESSION: 1. Acute/subacute CVA involving the right santiago radiata/right basal ganglia. 2. No abnormal postcontrast enhancement. 3. Nonspecific white matter changes, likely related to small vessel ischemic disease
[2022-06-02] MEDS: ATORVASTATIN 40 MG TAB PO SCH (21:02)
[2022-06-03] MEDS: HEPARIN SODIUM,PORCINE/PF 5,000 UNIT/0.5 ML SYRINGE SQ SCH ×4 (00:09→23:34)
[2022-06-03] MEDS: AMOXIC-POT CLAV 875-125MG 1 EACH TAB PO SCH ×2 (09:30→20:20)
[2022-06-03] MEDS: SERTRALINE 25 MG TAB PO SCH (09:30)
[2022-06-03] MEDS: CLOPIDOGREL 75 MG TAB PO SCH (09:30)
[2022-06-03] MEDS: ASPIRIN 81 MG PO SCH (09:30)
[2022-06-03] MEDS ORDERED: DEXTROSE 50% SYRINGE 50 ML IVP PRN ×2 (09:55)
[2022-06-03 11:52] LABS: Glucose,Whole Blood 131 mg/dL (70-110)
[2022-06-03 12:11] VITALS: BMI 25.0
[2022-06-03] MEDS: INSULIN ASPART (NovoLOG) 100 UNIT/ML VIAL SQ SCH ×3 (14:54→20:35)
--- NOTE | 2022-06-03 15:06 | P.PN ---
Subjective Progress Note Date: 06/03/22 This is a 52-year-old gentleman admitted with acute stroke, outside the window for TPA. Continues on dual antiplatelet therapy. Mild dysarthria; patient states his symptoms/presentation are about the same as yesterday, less facial drooping, less facial numbness- fluctuating.Denies chest pain, palpitations or shortness of breath. Denies lightheadedness, dizziness or focal deficits. 06/03/2022 continued improvement. brain MRI reported acute/subacute right santiago radiata/right basal ganglia CVA, nonspecific white matter likely related to small vessel ischemic disease. Swallow evaluated by speech therapy recommending regular diet. Hemoglobin A1c 6.7. Denies sinus tenderness to palpation. Denies lightheadedness, dizziness or focal deficits. Denies chest pain, palpitations or shortness of breath. Hypertensive. Objective - Vital Signs Vital signs: Vital Signs Temp 97.8 F 06/03/22 08:00 Pulse 82 06/03/22 08:00 Resp 16 06/03/22 08:00 BP 175/106 06/03/22 08:00 Pulse Ox 98 06/03/22 08:50 FiO2 Intake & Output 06/02/22 06/03/22 06/03/22 18:59 06:59 18:59 Intake Total 200 1330 Balance 200 1330 Weight 72.575 kg Intake: IV 10 Invasive Line 1 10 Oral 200 1320 Other: Voiding Method Toilet Toilet # Voids 2 1 - Exam GENERAL: Sitting up in bed, no acute distress. Pleasant, improving dysarthria-minimal HEENT: Normocephalic, atraumatic. Pupils are round and equally reacting to light. EOMI. No scleral icterus. No conjunctival pallor. Mild Left facial droop. CARDIOVASCULAR: S1 and S2 present. No murmurs, rubs, or gallops. PULMONARY: Unlabored, Chest is clear to auscultation, no wheezing or crackles. ABDOMEN: Soft, nontender, nondistended, normoactive bowel sounds. No palpable organomegaly. EXTREMITIES: No cyanosis, clubbing, or pedal edema. NEUROLOGICAL: Alert and oriented 3, left facial droop, mild dysarthria, minimal decreased weakness left upper extremity SKIN: No rashes. - Labs CBC & Chem 7: 06/02/22 08:53 06/02/22 08:25 Labs: Abnormal Lab Results - Last 24 Hours (Table) 06/03/22 Range/Units 11:51 POC Glucose (mg/dL) 131 H (70-110) mg/dL Assessment and Plan Assessment: Acute CVA with right basal ganglia, left facial droop, dysarthria,left upper extremity weakness. Chronic small left frontal stroke Hypertension Chronic sinusitis Diabetes mellitus, hemoglobin A1c 6.7, borderline new onset. will initiate low dose metformin at discharge. COVID-19 infection,11/21 Depression-Zoloft initiated Ongoing nicotine dependence Plan: Continue on current medication regime ,monitoring and symptomatic treatment. Hypertensive, began antihypertensives pending neurology clearance. Discussed with patient borderline new onset diabetes mellitus-with plan to place on metformin, low-dose at discharge. Hospital Television Rental Clerk consulted regarding further mary betic education .Novo[employer] sliding scale Accu-Cheks ordered. Nicotine cessation reinforced. Discharge planning in progress pending final DC recommendations and clearance per neurology. The impression and plan of care has been dictated as directed. : I performed a history and examination of this patient, discussed the same with the dictator. I agree with the dictator's note ,documented as a scribe. Any additional findings or plans will be noted.
[2022-06-03 16:28] LABS: Glucose,Whole Blood 109 mg/dL (70-110)
--- NOTE | 2022-06-03 16:34 | CDI ---
Documentation Clarification Form Date: 06/03/2022 4:19:00 PM From: Christina Garza RN, CCDS Admit Date: 05/31/2022 6:51:00 PM Patient Name: Paolo Hebert Visit Number: [id number] Discharge Date: ATTENTION: The Clinical Documentation Specialists (CDI) and [facility] Coding Staff appreciate your assistance in clarifying documentation. Please respond to the clarification below the line at the bottom and electronically sign. The CDI & [facility] Coding staff will review the response and follow-up if needed. Please note: Queries are made part of the Legal Health Record. If you have any questions, please contact the author of this message via ITS. Dr. Sal Salmon Diabetes is documented [insert date, location]. Additional specificity regarding the diabetes diagnosis is requested. History/Risk Factors: Chronic sinusitis, Hypertension Depression CVA, Clinical Indicators: 52-year-old male admit with acute stroke. Lab on 05/31 Hemoglobin Alc 6.7, glucose 112, 115. Progress note starting on 06/02/22 has diabetes mellitus, possible new onset. 06/03 VS: 185/102 76 16 100 % RA Treatment: Dietary consult, Diabetic education Accu-Checks ACHS Please clarify the type of diabetes, if known: [ ] Diabetes Type 1 [ X ] Diabetes Type 2 [ ] Other, please specify [ ] Unable to Determine (Template Last Revised: April 2020) MTDD
[2022-06-03] MEDS: ATORVASTATIN 40 MG TAB PO SCH (20:20)
[2022-06-03] MEDS: FAMOTIDINE 20 MG TAB PO SCH (20:21)
[2022-06-03 20:34] LABS: Glucose,Whole Blood 105 mg/dL (70-110)
[2022-06-04 06:16] LABS: Glucose,Whole Blood 123 mg/dL (70-110)
[2022-06-04] MEDS: INSULIN ASPART (NovoLOG) 100 UNIT/ML VIAL SQ SCH ×3 (06:25→17:46)
--- NOTE | 2022-06-04 08:08 | P.PN ---
Subjective Progress Note Date: 06/03/22 06/03/2022: Patient was seen for a follow-up. Patient states he is better, but sometimes gets slurred, which he describes as "back and forth". His left facial asymmetry appears better. No new concerns. He was noticing slight blurred vision, and tiredness, which could be related to the use of antidepressant. He denies depression. He states that he just became emotional the other day for which he was placed on sertraline. He does not have depression. 06/02/2022: Patient was initially seen by Dr. Eddy Gross. Please refer to his consultation note for details. Patient is a 52-year-old right-handed male with acute stroke, manifesting with left facial droop, dysarthria and left arm weakness. Patient has been placed on dual antiplatelet medication. Patient states that he woke up at 11 AM and was feeling fine. He just did not speak, but started working on the laptop computer. At 1 PM when he started talking to his son, when he noticed slurred speech and droopy face. He came to the ER at 4:16 PM. Patient was considered not a candidate for TPA, as the time of onset of symptoms was uncertain. Patient has smoked one third pack per day for 10-15 years. He also has chronic sinusitis, following up with ENT specialist for possible ENT surgery. Patient states that he suffered from work-related injury to the low back years ago. He see a chiropractor, who usually massages his neck and the shoulder region. He does not get usually adjustments to the neck. Objective - Vital Signs Vital signs: Vital Signs Temp 97.8 F 06/03/22 08:00 Pulse 82 06/03/22 08:00 Resp 16 06/03/22 08:00 BP 175/106 06/03/22 08:00 Pulse Ox 98 06/03/22 08:50 FiO2 Intake & Output 06/02/22 06/03/22 06/03/22 18:59 06:59 18:59 Intake Total 200 1330 Balance 200 1330 Weight 72.575 kg Intake: IV 10 Invasive Line 1 10 Oral 200 1320 Other: Voiding Method Toilet Toilet # Voids 2 1 - Exam Patient is a middle aged male, very pleasant, in no acute distress. Patient is alert awake oriented to time place and person. Patient has mild dysarthria, but no aphasia. Patient can name and repeat very well. Attention, concentration and fund of knowledge is adequate. On cranial nerve examination, pupils are equal, round and reacting to light, visual shane are full on confrontation, with no neglect on double simultaneous stimulation. Extraocular muscles are intact with no nystagmus. Patient has left facial weakness, central type, mild to moderate, slightly better than yesterday. His tongue protrudes minimally to the left. Palatal elevation and sensation normal, hearing and shoulder shrug normal, facial sensation normal. On muscle strength testing, there is left-sided pronation, no drift. The strength is normal in arms and legs distally and proximally, except left software development advisor, which is 5-. Deep tendon reflexes are hypoactive, and plantars are flat bilaterally. Sensory to touch is equal with no neglect on double simultaneous stimulation. Cerebellar function showed no ataxia for dqyaop-oj-lbuv testing. No dysdiadochokinesia. No ataxia for lfbn-nt-maaf testing on either side. Tone and bulk of muscles normal. Gait deferred.. On general examination, there is no carotid bruit or murmur, S1-S2 audible. Chest is clear on consultation. Abdomen is soft nontender. No organomegaly, bowel sounds present. Peripheral pulses are present. No edema. - Labs CBC & Chem 7: 06/02/22 08:53 06/02/22 08:25 Labs: Abnormal Lab Results - Last 24 Hours (Table) 06/03/22 Range/Units 11:51 POC Glucose (mg/dL) 131 H (70-110) mg/dL Assessment and Plan Assessment: * Acute ischemic stroke right santiago radiata/basal ganglia, likely lacunar from small vessel disease. Patient had presented with left facial weakness dysarthria and left upper extremity weakness with numbness as well as left facial numbness. * History of old small left frontal stroke (patient unaware) * Hypertension * Hyperlipidemia * New onset mild diabetes with A1c 6.7 * Tobacco use * Ongoing chronic sinusitis * History of COVID-19 infection in the end of October 2021 Plan: In the ED the patient the was given aspirin 325 once. Patient was subsequently started on aspirin 81 mg as well as Plavix 75 mg (both are new). Lipid panel with cholesterol 198, LDL 137.8, HDL 37.4, triglycerides were 14. Agree with starting Lipitor 40mg qhs for secondary stroke prophylaxis. MRI the brain revealed acute/subacute CVA involving the right santiago radiata/right basal ganglia. Nonspecific finding matter changes, likely related to small vessel ischemic disease. I personally reviewed MRI, agree with the findings. Appears lacunar stroke. 2-D echo revealed mild to moderate concentric LVH, EF is 55-60%. Left atrial size is normal. No valvular abnormalities. HbA1c 6.7. Patient probably has new-onset diabetes. Patient was recommended to completely stop sweets and candies, and repeat A1c in 3 months. Await young stroke work-up (VWF, protein C/S, homocysteine 9.26 normal, antithrombin III, factor V leiden, prothrombin 07058, ESR 6, CRP <0.5, MARIANO negative) Recommend an event monitor for 30 days prior to discharge. PT, OT and SCIENTIFIC TECHNICAL WRITER are consulted CTA of head and neck revealed no significant angiographic abnormalities Continue neuro checks On cardiac monitoring Patient is noticing some blurred vision, and excessive tiredness, likely from side effect of sertraline. We will stop sertraline. Patient's neurological examination and appears stable. May start decreasing blood pressure gradually. No hypotension. For DVT prophylaxis start the patient on subcu heparin 5000 units every 8 hours Speech therapy, PT and OT.
[2022-06-04] MEDS ORDERED: LOSARTAN 25 MG TAB PO SCH (09:00)
[2022-06-04] MEDS: HEPARIN SODIUM,PORCINE/PF 5,000 UNIT/0.5 ML SYRINGE SQ SCH ×2 (09:11→17:45)
[2022-06-04] MEDS: CLOPIDOGREL 75 MG TAB PO SCH (09:11)
[2022-06-04] MEDS: ASPIRIN 81 MG PO SCH (09:11)
[2022-06-04] MEDS: FAMOTIDINE 20 MG TAB PO SCH (09:11)
[2022-06-04] MEDS: AMOXIC-POT CLAV 875-125MG 1 EACH TAB PO SCH (09:12)
[2022-06-04 10:06] LABS: Anti-Thrombin III Antigen 91 % (80 - 120)
[2022-06-04 10:06] LABS: Protein S Antigen 93 % (50 - 140)
[2022-06-04 10:42] VITALS: RESP 16
[2022-06-04 11:45] LABS: Glucose,Whole Blood 99 mg/dL (70-110)
--- NOTE | 2022-06-04 16:02 | P.DS ---
Providers Date of admission: 05/31/22 18:51 Expected date of discharge: 06/04/22 Attending physician: Sal Salmon MD Consults: 05/31/22 18:51 Consult Physician Routine Consulting Provider: Eddy Gross Consult Reason/Comments: cva Do you want consulting provider notified?: Yes Primary care physician: Soni Paulson Hospital Course: Final Diagnoses: Acute CVA with right basal ganglia, left facial droop, dysarthria,left upper extremity weakness. Chronic small left frontal stroke Hypertension Chronic sinusitis Diabetes mellitus, hemoglobin A1c 6.7, borderline new onset. will initiate low dose metformin at discharge. COVID-19 infection,11/21 Depression-Zoloft initiated-discontinued. Ongoing nicotine dependence. Hospital course:This is a 52-year-old gentleman admitted with acute stroke, outside the window for TPA. Continues on dual antiplatelet therapy. Mild dysarthria; patient states his symptoms/presentation are about the same as yesterday, less facial drooping, less facial numbness- fluctuating.Denies chest pain, palpitations or shortness of breath. Denies lightheadedness, dizziness or focal deficits. 06/03/2022 continued improvement. brain MRI reported acute/subacute right santiago radiata/right basal ganglia CVA, nonspecific white matter likely related to small vessel ischemic disease. Swallow evaluated by speech therapy recommending regular diet. Hemoglobin A1c 6.7. Denies sinus tenderness to palpation. Denies lightheadedness, dizziness or focal deficits. Denies chest pain, palpitations or shortness of breath. Hypertensive. Significant clinical improvement. Denies chest pain, palpitations or shortness of breath. Zoloft discontinued yesterday as patient reported blurred vision, excessive fatigue. Denies lightheadedness, dizziness or focal deficits. Minimal dysarthria. Cleared to begin antihypertensives per neurology. Low-dose losartan initiated-avoiding hypotension. Smoking cessation reinforced. Case management to provide patient with glucometer. Received diabetic education as per dietitian. Low-dose metformin at discharge initiated. Neurology recommending thirty day event monitor prior to discharge. Dual antiplatelet therapy with aspirin and Plavix, DC Plavix after 3-4 weeks and remain on aspirin indefinitely.Follow-up with ENT specialist regarding chronic sinusitis. cleared by neurology for discharge. Patient will be discharged home today in a stable condition with guarded prognosis. The impression and plan of care has been dictated as directed. : I performed a history and examination of this patient, discussed the same with the dictator. I agree with the dictator's note ,documented as a scribe. Any additional findings or plans will be noted. Patient Condition at Discharge: Stable Plan - Discharge Summary Discharge Rx Participant: Yes New Discharge Prescriptions: New metFORMIN HCL 500 mg PO DAILY #30 tablet Aspirin 81 mg PO DAILY #0 tab Atorvastatin [Lipitor] 40 mg PO HS #30 tab Amoxic-Pot Clav 875-125Mg [Augmentin 875-125] 1 each PO Q12HR 3 Days #6 tab Losartan [Cozaar] 25 mg PO DAILY #30 tab Famotidine [Pepcid] 20 mg PO BID #60 tab Clopidogrel [Plavix] 75 mg PO DAILY #30 tab Continue Loratadine [Claritin] 10 mg PO DAILY Azelastine HCl [Astelin Nasal [place]] 137 mcg NASAL DAILY Discharge Medication List Azelastine HCl [Astelin Nasal [place]] 137 mcg NASAL DAILY 05/31/22 [History] Loratadine [Claritin] 10 mg PO DAILY 05/31/22 [History] metFORMIN HCL 500 mg PO DAILY #30 tablet 06/03/22 [Rx] Amoxic-Pot Clav 875-125Mg [Augmentin 875-125] 1 each PO Q12HR 3 Days #6 tab 06/04/22 [Rx] Aspirin 81 mg PO DAILY #0 tab 06/04/22 [Rx] Atorvastatin [Lipitor] 40 mg PO HS #30 tab 06/04/22 [Rx] Clopidogrel [Plavix] 75 mg PO DAILY #30 tab 06/04/22 [Rx] Famotidine [Pepcid] 20 mg PO BID #60 tab 06/04/22 [Rx] Losartan [Cozaar] 25 mg PO DAILY #30 tab 06/04/22 [Rx] Follow up Appointment(s)/Referral(s): Sal Salmon MD [STAFF PHYSICIAN] - 3 Days Activity/Diet/Wound Care/Special Instructions: 30 day event monitor prior to discharge as per neurology. Dual antiplatelet therapy with aspirin and Plavix, DC Plavix after 3-4 weeks and remain on aspirin indefinitely. Follow-up with ENT specialist regarding chronic sinusitis Glucometer with test strips, before meals and at bedtime, maintain log and take to follow-up visit with PCP.
[2022-06-04 16:29] VITALS: BP 161/97; PULSE 77; TEMP 98.2
[2022-06-04 16:33] LABS: Glucose,Whole Blood 95 mg/dL (70-110)
--- NOTE | 2022-06-05 10:04 | P.PN ---
Subjective Progress Note Date: 06/04/22 06/04/2022: Patient was seen for a follow-up. Patient states he is feeling better today definitely. Denies headache, still with slight numbness of the left hand. His speech is improving. He states that he is trying to talk a lot to help with the speech functions. Telemetry monitoring so far showing sinus rhythm with no other arrhythmia. 06/03/2022: Patient was seen for a follow-up. Patient states he is better, but sometimes gets slurred, which he describes as "back and forth". His left facial asymmetry appears better. No new concerns. He was noticing slight blurred vision, and tiredness, which could be related to the use of antidepressant. He denies depression. He states that he just became emotional the other day for which he was placed on sertraline. He does not have depression. 06/02/2022: Patient was initially seen by Dr. Eddy Gross. Please refer to his consultation note for details. Patient is a 52-year-old right-handed male with acute stroke, manifesting with left facial droop, dysarthria and left arm weakness. Patient has been placed on dual antiplatelet medication. Patient states that he woke up at 11 AM and was feeling fine. He just did not speak, but started working on the laptop computer. At 1 PM when he started talking to his son, when he noticed slurred speech and droopy face. He came to the ER at 4:16 PM. Patient was considered not a candidate for TPA, as the time of onset of symptoms was uncertain. Patient has smoked one third pack per day for 10-15 years. He also has chronic sinusitis, following up with ENT specialist for possible ENT surgery. Patient states that he suffered from work-related injury to the low back years ago. He see a chiropractor, who usually massages his neck and the shoulder region. He does not get usually adjustments to the neck. Objective - Vital Signs Vital signs: Vital Signs Temp 98.3 F 06/04/22 11:54 Pulse 74 06/04/22 14:00 Resp 16 06/04/22 14:00 BP 166/98 06/04/22 11:54 Pulse Ox 100 06/04/22 11:54 FiO2 Intake & Output 06/03/22 06/04/22 06/04/22 18:59 06:59 18:59 Intake Total 240 1080 Output Total 200 Balance 40 1080 Weight 72.575 kg Intake: Oral 240 1080 Output: Urine 200 Other: Voiding Method Toilet Toilet Toilet # Voids 1 - Exam Patient is a middle aged male, very pleasant, in no acute distress. Patient is alert awake oriented to time place and person. Patient has mild dysarthria, but no aphasia. The dysarthria has improved as compared to yesterd ay. Patient can name and repeat very well. Attention, concentration and fund of knowledge is adequate. On cranial nerve examination, pupils are equal, round and reacting to light, visual shane are full on confrontation, with no neglect on double simultaneous stimulation. Extraocular muscles are intact with no nystagmus. Patient has left facial weakness, central type, mild to moderate, much better today as compared to yesterday. His tongue protrudes to the midline. Palatal elevation and sensation normal, hearing and shoulder shrug normal, facial sensation normal. On muscle strength testing, there is left-sided pronation, no drift. The strength is normal in arms and legs distally and proximally, except left party plan sales host/hostess, which is 5-. Deep tendon reflexes are hypoactive, and plantars are flat bilaterally. Sensory to touch is equal with no neglect on double simultaneous stimulation. Cerebellar function showed no ataxia for vpgqkb-nu-kxwf testing. No dysdiadochokinesia. No ataxia for gwuv-pv-jxkf testing on either side. Tone and bulk of muscles normal. Gait deferred.. On general examination, there is no carotid bruit or murmur, S1-S2 audible. Chest is clear on consultation. Abdomen is soft nontender. No organomegaly, bowel sounds present. Peripheral pulses are present. No edema. - Labs CBC & Chem 7: 06/02/22 08:53 06/02/22 08:25 Labs: Abnormal Lab Results - Last 24 Hours (Table) 06/04/22 Range/Units 06:14 POC Glucose (mg/dL) 123 H (70-110) mg/dL Assessment and Plan Assessment: * Acute ischemic stroke right santiago radiata/basal ganglia, likely lacunar from small vessel disease. Patient had presented with left facial weakness dysa rthria and left upper extremity weakness with numbness as well as left facial numbness. * History of old small left frontal stroke (patient unaware) * Hypertension * Hyperlipidemia * New onset mild diabetes with A1c 6.7 * Tobacco use * Ongoing chronic sinusitis * History of COVID-19 infection in the end of October 2021 Plan: Patient is clinically better today. His left facial droop, speech both have improved. In the ED the patient the was given aspirin 325 once. Patient was subsequently started on aspirin 81 mg as well as Plavix 75 mg (both are new). Continue DAP for 30 days. Then stop Plavix and continue aspirin 81 mg indefinitely. Lipid panel with cholesterol 198, LDL 137.8, HDL 37.4, triglycerides were 14. Agree with starting Lipitor 40mg qhs for secondary stroke prophylaxis. MRI the brain revealed acute/subacute CVA involving the right santiago radiata/right basal ganglia. Nonspecific finding matter changes, likely related to small vessel ischemic disease. I personally reviewed MRI, agree with the findings. Appears lacunar stroke. Also evidence of old lacune involving the left frontal region adjacent to the frontal horn. 2-D echo revealed mild to moderate concentric LVH, EF is 55-60%. Left atrial size is normal. No valvular abnormalities. HbA1c 6.7. Patient probably has new-onset diabetes. Patient was recommended to completely stop sweets and candies, and repeat A1c in 3 months. Await young stroke work-up (VWF 185 % normal, protein S 93% normal. Protein C antigen and activity normal. Homocysteine 9.26 normal, antithrombin III 91% normal, factor V leiden negative, prothrombin 11392 mutation negative, ESR 6, CRP <0.5, MARIANO negative) Recommend an event monitor for 30 days prior to discharge. PT, OT and SYSTEMS APPLICATIONS PROGRAMMING LEAD are consulted CTA of head and neck revealed no significant angiographic abnormalities On cardiac monitoring Patient's neurological examination appears to be better. May start decreasing blood pressure gradually. No hypotension. Recommend patient follow up with neurologist in 1-2 weeks. Also with primary physician to address blood pressure management. Neurologically clear for discharge.
[2022-06-06 00:29] LABS: Von Willebrand Factor Antigen 185 % (52-214)
[2022-06-06 11:22] LABS: Protein C Antigen 143 % (72-160)
[2022-06-06 12:55] LABS: Protein C (Activity) 81 % (71-138)
== END 2022-06-04 19:13 | disposition home or self-care (01) | DRG 66 ==
LOC: EC 16:10 → 3SCARD 18:51
PROVIDERS: ADMIT Family Medicine; ATTEND Family Medicine
DX: I63.81 Other cerebral infarction due to occlusion or stenosis of small artery (principal); R47.1 Dysarthria and anarthria; G83.24 Monoplegia of upper limb affecting left nondominant side; R29.810 Facial weakness; J32.8 Other chronic sinusitis; E11.9 Type 2 diabetes mellitus without complications; Z20.822 Contact with and (suspected) exposure to COVID-19; E78.5 Hyperlipidemia, unspecified; F17.210 Nicotine dependence, cigarettes, uncomplicated; R20.0 Anesthesia of skin; F32.A Depression, unspecified; I10 Essential (primary) hypertension; J01.90 Acute sinusitis, unspecified; J30.2 Other seasonal allergic rhinitis; R29.704 NIHSS score 4; Z86.16 Personal history of COVID-19; Z82.3 Family history of stroke
CPT/HCPCS: 36415; 70450; 70496; 70498; 70553; 71046; 80048; 80053; 80061; 81240; 81241; 82550; 83036; 83090; 84484; 85025; 85246; 85300; 85301; 85302; 85303; 85305; 85306; 85610; 85652; 85730; 86038; 86140; 87636; 93005; 93306; 94760; 99291

== ENCOUNTER → 2022-07-08 | Outpatient (CLI) | payer BC ==
[2022-07-08 20:47] LABS: African American GFR (CKD) 86.8 (60.0-200.0); Anion Gap 14.6 mmol/L (10.00-18.00); BUN/Creat Ratio 8.91 Ratio (12.00-20.00); Blood Urea Nitrogen 9.9 mg/dL (9.0-27.0); Calcium 10.1 mg/dL (8.7-10.3); Carbon Dioxide 23.5 mmol/L (20.0-27.5); Non-African American GFR(CKD) 74.9 (60.0-200.0); Potassium 4.4 mmol/L (3.5-5.5)
== END | disposition home or self-care (01) ==
LOC: LABPAT 10:10
PROVIDERS: ATTEND Internal Medicine Cardiovascular Disease
DX: Z01.812 Encounter for preprocedural laboratory examination (principal)
CPT/HCPCS: 80048

== ENCOUNTER 2022-07-09 06:34 | Day surgery (SDC) | payer BC ==
[2022-07-09 06:55] VITALS: RESP 18; TEMP 97.8
[2022-07-09] MEDS ORDERED: SODIUM CHLORIDE 0.9% 500 ML 500 ML IV ONE (06:55)
[2022-07-09 06:57] LABS: Glucose,Whole Blood 102 mg/dL (70-110)
[2022-07-09] MEDS ORDERED: fentaNYL (PF) 50 MCG/ML 2 ML AMP ONE (07:12)
[2022-07-09] MEDS ORDERED: BENZOCAINE SPRAY 1 CAN MUCOUS MEM ONE (07:28)
[2022-07-09] MEDS ORDERED: fentaNYL (PF) 50 MCG/1 ML VIAL IVP ONE (07:30)
[2022-07-09] MEDS ORDERED: MIDAZOLAM 2 MG/2 ML VIAL IVP ONE (07:30)
--- NOTE | 2022-07-09 08:17 | ECHOT ---
TRANSESOPHAGEAL ECHOCARDIOGRAM INDICATION: CVA, rule out cardiac source of thromboembolic phenomenon. PROCEDURE NOTE: After obtaining informed consent, transesophageal echocardiogram was performed in left lateral position using an Omniplane probe. Local and IV sedation were obtained using Xylocaine spray, 2 mg of Versed, and 25 mcg of fentanyl. The patient tolerated the procedure well without any obvious immediate complications. FINDINGS: 1. There is no intracardiac thrombus within the left atrial appendage, left atrium, right atrium, right ventricle, or left ventricle. 2. Left ventricle has normal size, shows left ventricular hypertrophy with normal LV systolic function. 3. There is no evidence of cukd-cm-yzcnz shunt by color-flow Doppler or uadzb-zx-nuqr shunt by agitated saline contrast study. 4. Mitral valve shows mild mitral regurgitation. 5. Tricuspid valve appears normal. 6. Aortic valve is a 3-leaflet valve. There is no evidence of aortic stenosis or regurgitation. 7. Aortic root measures within normal limits. CONCLUSIONS: No intracardiac source of thromboembolic CVA. MMODL / IJN: [id number] /
[2022-07-09 09:24] VITALS: BP 152/88; PULSE 70
== END 2022-07-09 09:25 | disposition home or self-care (01) ==
LOC: CATHCVL 06:34
PROVIDERS: ATTEND Internal Medicine Cardiovascular Disease
DX: I51.7 Cardiomegaly (principal); I34.0 Nonrheumatic mitral (valve) insufficiency; F17.210 Nicotine dependence, cigarettes, uncomplicated
CPT/HCPCS: 93312; 93320; 93325; J2250; J3010

== ENCOUNTER → 2022-10-21 | Outpatient (CLI) | payer BC ==
[2022-10-21 20:29] LABS: HCT 42.9 % (39.6-50.0); HGB 13.8 d/dL (13.0-17.0); MCH 23.7 pg (27.0-32.0); MCHC 32.2 d/dL (32.0-37.0); MCV 73.7 FL (80.0-97.0); NRBC Per 100 WBC 0 X 10*3/uL (0.00-0.01); Platelet Count 302 X 10*3/uL (140-440); RBC 5.82 X 10*6/uL (4.40-5.60); RDW 14.5 % (11.5-14.5); WBC 11.35 X 10*3/uL (4.50-10.00)
[2022-10-21 21:02] LABS: BUN/Creat Ratio 12.82 Ratio (12.00-20.00); Blood Urea Nitrogen 14.1 mg/dL (9.0-27.0); Calcium 9.7 mg/dL (8.7-10.3); Carbon Dioxide 24.3 mmol/L (21.6-31.8); Chloride 101 mmol/L (96-109); Glucose 201 mg/dL (70-110); Potassium 4.4 mmol/L (3.5-5.5); Sodium 137 mmol/L (135-145)
== END | disposition home or self-care (01) ==
LOC: LABWHC1 15:53
PROVIDERS: ATTEND Internal Medicine Cardiovascular Disease
DX: R93.1 Abnormal findings on diagnostic imaging of heart and coronary circulation (principal)
CPT/HCPCS: 36415; 80048; 85027

== ENCOUNTER 2022-10-24 07:22 | Day surgery (SDC) | payer BC ==
[2022-10-22 13:26] VITALS: BMI 25.0
[~2022-10-24 07:22] MED LIST: ALPRAZolam 0.25 MG TAB PO PRN; ALPRAZolam 0.5 MG TAB PO PRN; ASPIRIN 325 MG TAB PO STA; ATORVASTATIN 80 MG TAB PO STA; HEPARIN SODIUM,PORCINE (1 ML) 2,500 UNIT in SODIUM CHLORIDE 0.9% 250 ML IRRIGATION PRN; HEPARIN SODIUM,PORCINE 10,000 UNIT in SODIUM CHLORIDE 0.9% 1,000 ML IRRIGATION PRN; NITROGLYCERIN SL TABS 0.4 MG TAB SUBLINGUAL PRN; SODIUM CHLORIDE 0.9% 1,000 ML in EMPTY BAG 1 BAG IV SCH
[2022-10-24 08:00] VITALS: RESP 18; TEMP 98.2
[2022-10-24 08:05] LABS: Glucose,Whole Blood 112 mg/dL (70-110)
[2022-10-24] MEDS ORDERED: VERAPAMIL 2.5 MG/ML 2 ML AMP ONE (08:29)
[2022-10-24] MEDS ORDERED: LIDOCAINE 1% INJ 10MG/ML (20 ML MDV) ONE (08:29)
[2022-10-24] MEDS ORDERED: CLOPIDOGREL 75 MG TAB ONE (08:33)
[2022-10-24] MEDS ORDERED: fentaNYL (PF) 50 MCG/ML 2 ML AMP ONE (08:48)
[2022-10-24] MEDS ORDERED: HEPARIN SODIUM 1,000 UN/ML (10ML VL) ONE (08:48)
[2022-10-24] MEDS ORDERED: MIDAZOLAM 2 MG/2 ML VIAL IVP ONE (08:52)
[2022-10-24] MEDS ORDERED: fentaNYL (PF) 50 MCG/ML 2 ML AMP IVP ONE ×2 (08:52→13:15)
[2022-10-24] MEDS ORDERED: LIDOCAINE 1% INJ 10MG/ML (5 ML VIAL-PF) SQ ONE (08:53)
[2022-10-24] MEDS ORDERED: VERAPAMIL SYRINGE (5 MG/10 ML) INTRAARTER ONE ×2 (08:54→13:17)
[2022-10-24] MEDS ORDERED: HEPARIN SODIUM 1,000 UN/ML (10ML VL) IV ONE (08:59)
[2022-10-24] MEDS ORDERED: IOPAMIDOL-370 200ML BTL INJ ONE (09:20)
--- NOTE | 2022-10-24 09:56 | CC ---
CARDIAC CATHETERIZATION REPORT INDICATION: Abnormal stress test ischemia involving the lateral wall. PROCEDURE NOTE: After obtaining informed consent, left heart catheterization and coronary angiogram were performed via the right radial artery using standard Az catheters. The patient tolerated the procedure well without any obvious immediate complications. The patient received moderate conscious sedation. We have given verapamil and heparin per protocol. A TR band will be used for hemostasis. Right radial artery access was obtained using Seldinger technique, 6-Scottish sheath was placed. Catheters and wires were floated into the ascending aorta under fluoroscopic guidance. FINDINGS: 1. HEMODYNAMICS: Left ventricular end-diastolic pressure is 18 mm. There is no significant gradient across the aortic valve. 2. LEFT VENTRICULOGRAM: Left ventriculogram is not performed. 3. ANGIOGRAPHIC DATA: a.Right coronary artery: Right coronary artery is a large dominant vessel that shows a 30% to 40% stenosis involving proximal RCA. b.Left main coronary artery is a normal-sized vessel and is free of stenosis. Divides into left anterior descending coronary artery and circumflex coronary artery. c.Circumflex coronary artery seems totally occluded after the origin of a large caliber diagonal branch, which explains the patient's abnormal stress test. 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 PLAN: I reviewed angiographic data with the patient and advised him on continued medical therapy at this time. MMODL / IJN: [id number] /
--- NOTE | 2022-10-24 09:59 | LTR ---
Dear Sal: I performed cardiac catheterization on Paolo Hebert. Detailed catheterization note is enclosed for your records. Cardiac catheterization was done following an abnormal stress test showing ischemia in the lateral wall. Cath shows a chronic occlusion of the AV groove circ and we will manage him with medical therapy. Thank you for giving me the privilege to participate in the care of this pleasant gentleman. MMCASEYL / MANIN: [id number] /
[2022-10-24] MEDS ORDERED: IV FLUID CONTINUATION 800 ML IV ONE (13:03)
[2022-10-24] MEDS ORDERED: LIDOCAINE 1% INJ 10MG/ML (20 ML MDV) SQ ONE ×2 (13:15→13:16)
[2022-10-24] MEDS: MIDAZOLAM 2 MG/2 ML VIAL IVP ONE ×2 (13:20→13:27)
[2022-10-24] MEDS: HEPARIN SODIUM 1,000 UN/ML (10ML VL) IVP ONE ×2 (13:25→13:45)
[2022-10-24] MEDS ORDERED: IOPAMIDOL-370 100ML BTL INJ ONE ×2 (13:50→13:55)
[2022-10-24] MEDS ORDERED: ZOLPIDEM 5 MG TAB PO PRN (14:03)
[2022-10-24] MEDS ORDERED: MAG HYDROX/AL HYDROX/SIMETH 30 ML CUP PO PRN (14:03)
[2022-10-24] MEDS ORDERED: NITROGLYCERIN SL TABS 0.4 MG TAB SUBLINGUAL PRN (14:03)
[2022-10-24] MEDS ORDERED: RX INFO: IV CONTRAST WAS GIVEN 1 EACH MISC MISCELLANE PRN (14:03)
[2022-10-24] MEDS ORDERED: ATROPINE SULFATE 0.1 MG/ML 10ML SYRINGE IV PRN (14:03)
--- NOTE | 2022-10-24 14:11 | P.CARDCATH ---
Date of Procedure: 10/24/22 Description of Procedure: PERCUTANEOUS TRANSLUMINAL CORONARY ANGIOPLASTY CLINICAL INFORMATION: PERCUTANEOUS TRANSLUMINAL CORONARY ANGIOPLASTY CLINICAL INFORMATION: The patient is a 52-year-old male with a known history of diabetes and hyperlipidemia who sustained a CVA recently, underwent cardiac catheterization because of an abnormal MPI and was found to have a totally occluded mid left circumflex with borderline significant lesion in the mid RCA. Recommendations were made regarding possible PCI after IFR. The procedure as well as the risks and the complications were discussed with the patient who was in full understanding and agreement. PROCEDURE: The 6-Israeli sheath in the right radial artery was exchanged to a new 6-Israeli sheath was guidewire exchange technique. Attempts to cannulate the right coronary artery was a 6-Israeli AL 0.75 was unsuccessful. A 6 Israeli 3.5 FR guiding catheter was introduced into the system. After cannulating the right coronary ostium, an Omni Doppler flow wire was advanced across the lesion and positioned distally. IFR was measured at 0.87. Following that a 3.5 x 18 mm Xience doyle point stent was deployed. It was dilated at exchange. After the last inflation, after appropriate wait, the balloon and the guidewire were withdrawn back into the guiding catheter. Images were obtained and repeated. Those images reveal stable successful stenting. At that point, the guiding catheter, the balloon, and guidewire were removed. The sheath was removed. Hemostasis was obtained with deployment of a TR band. There were no immediate complications. The patient was returned to the room in stable condition. Of note, the patient received 7000 units of heparin and continued on Plavix. His ACT was followed. There was no immediate complications. He had chest discomfort and EKG changes that resolved at the end of the procedure RESULTS: Successful stenting of the mid RCA with reduction of stenosis from 70 % to 0 % with abnormal IFR prior to intervention, post intervention 0.97 RECOMMENDATIONS: The patient will continue on aspirin and clopidogrel for 6 months without any interruption in addition to aggressive coronary risk modification. The findings and recommendations were discussed with the patient and the family, they are in full understanding and agreement. Duration of sedation: 45 minutes
[2022-10-24] MEDS ORDERED: SODIUM CHLORIDE 0.9% 1,000 ML in EMPTY BAG 1 BAG IV SCH (14:15)
[2022-10-24] MEDS ORDERED: LOSARTAN 50 MG TAB PO SCH (16:15)
[2022-10-24 17:06] VITALS: PULSE 98
[2022-10-24 17:12] VITALS: BP 155/89
[2022-10-25] MEDS ORDERED: ASPIRIN 81 MG PO SCH (09:00)
[2022-10-25] MEDS ORDERED: ATORVASTATIN 20 MG TAB PO SCH (09:00)
[2022-10-25] MEDS ORDERED: CLOPIDOGREL 75 MG TAB PO SCH (09:00)
== END 2022-10-24 17:13 | disposition home or self-care (01) ==
LOC: CATHCVL 07:22
PROVIDERS: ATTEND Internal Medicine Cardiovascular Disease
DX: I25.10 Atherosclerotic heart disease of native coronary artery without angina pectoris (principal); E11.9 Type 2 diabetes mellitus without complications; I10 Essential (primary) hypertension; I63.9 Cerebral infarction, unspecified; Z86.73 Personal history of transient ischemic attack (TIA), and cerebral infarction without residual deficits; Z82.49 Family history of ischemic heart disease and other diseases of the circulatory system; Z87.891 Personal history of nicotine dependence; Z79.82 Long term (current) use of aspirin; Z79.84 Long term (current) use of oral hypoglycemic drugs; Z79.02 Long term (current) use of antithrombotics/antiplatelets
CPT/HCPCS: 93458; 93799; 92928; C1769 ×4; C1894; C1887 ×2; C1874; J2250; J2001 ×2; J3010; J1644; Q9967 ×2

== ENCOUNTER 2023-03-21 06:25 | Emergency (ER) | payer BC, OTHER ==
[2023-03-21 06:46] VITALS: RESP 20; TEMP 98.2
[2023-03-21] MEDS ORDERED: SODIUM CHLORIDE 0.9% 500 ML 500 ML IV STA (06:52)
[2023-03-21] MEDS ORDERED: KETOROLAC 15 MG/ML 1 ML VIAL IVP STA (06:52)
[2023-03-21] MEDS ORDERED: HYDROmorphone 0.5 MG/0.5 ML SYRINGE IVP STA (06:53)
[2023-03-21] MEDS ORDERED: ONDANSETRON 4 MG/2 ML VIAL IVP STA (06:53)
--- NOTE | 2023-03-21 06:54 | ED ---
Back Pain HPI - General Chief Complaint: Back Pain/Injury Stated Complaint: BACK PAIN Time Seen by Provider: 03/21/23 06:31 Source: patient, family, RN notes reviewed Limitations: no limitations - History of Present Illness Initial Comments: 52-year-old male presents emergency Department chief complaint abdominal pain, back pain. Patient states started other day. He denies any significant falls or injuries noted. He states is a large amount of pressure in his abdomen but severe low back pain. He states he had an L3 disc issue in the past. He denies any bowel, bladder incontinence or retention or saddle anesthesias. He states the pain is so intense it makes it hard to breathe. No fevers or chills no change in bowel habits. - Related Data Home Medications Medication Instructions Recorded Confirmed Aspirin 81 mg PO DAILY 07/07/22 10/24/22 Clopidogrel [Plavix] 75 mg PO DAILY 07/07/22 10/24/22 metFORMIN HCL 500 mg PO DAILY 07/07/22 10/24/22 Rosuvastatin [Crestor] 10 mg PO DAILY 10/22/22 10/24/22 amLODIPine BESYLATE 10 mg PO DAILY 10/22/22 10/24/22 Previous Rx's Medication Instructions Recorded Hydrocortisone Acetate [Anusol-Hc] 25 mg RECTAL HS #20 suppositor 03/21/23 Orphenadrine [Norflex] 100 mg PO Q12H #14 tab 03/21/23 predniSONE 50 mg PO DAILY #5 tab 03/21/23 Allergies Allergy/AdvReac Type Severity Reaction Status Date / Time levofloxacin [From Levaquin] Allergy Dyspnea Verified 03/21/23 06:45 Review of Systems ROS Statement: Those systems with pertinent positive or pertinent negative responses have been documented in the HPI. ROS Other: All systems not noted in ROS Statement are negative. Past Medical History Past Medical History: CVA/TIA, Diabetes Mellitus, GERD/Reflux, Hyperlipidemia, Hypertension Additional Past Medical History / Comment(s): Hx CVA 05/31/22 with continued left sided weakness, vertigo/blurry vision. Chronic sinus infection. "Borderline diabetic". Stroke History of Any Multi-Drug Resistant Organisms: None Reported Past Surgical History: No Surgical Hx Reported Additional Past Surgical History / Comment(s): Sinus surgery. Past Anesthesia/Blood Transfusion Reactions: No Reported Reaction Additional Past Anesthesia/Blood Transfusion Reaction / Comment(s): Pt has never received a blood transfusion. Past Psychological History: No Psychological Hx Reported Smoking Status: Former smoker Past Alcohol Use History: None Reported Past Drug Use History: None Reported - Past Family History Father Family Medical History: CVA/TIA, Diabetes Mellitus Mother Family Medical History: Diabetes Mellitus, Renal Disease General Exam Limitations: no limitations General appearance: alert, in no apparent distress Head exam: Present: atraumatic, normocephalic, normal inspection Neck exam: Present: normal inspection. Absent: tenderness, meningismus, lymph adenopathy Respiratory exam: Present: normal lung sounds bilaterally. Absent: respiratory distress, wheezes, rales, rhonchi, stridor Cardiovascular Exam: Present: normal rhythm, tachycardia, normal heart sounds. Absent: systolic murmur, diastolic murmur, rubs, gallop, clicks GI/Abdominal exam: Present: soft, tenderness, normal bowel sounds. Absent: distended, guarding, rebound, rigid Extremities exam: Present: normal inspection, full ROM, normal capillary refill. Absent: tenderness, pedal edema, joint swelling, calf tenderness Back exam: Present: tenderness, paraspinal tenderness, vertebral tenderness. Absent: full ROM Neurological exam: Present: alert, oriented X3, reflexes normal. Absent: motor sensory deficit Course Vital Signs 03/21/23 03/21/23 03/21/23 06:42 07:54 10:26 Temperature 98.2 F Pulse Rate 111 H 83 Respiratory 20 20 Rate Blood Pressure 166/103 140/88 154/101 O2 Sat by Pulse 99 99 Oximetry 03/21/23 13:21 Temperature Pulse Rate 88 Respiratory 20 Rate Blood Pressure 162/104 O2 Sat by Pulse 99 Oximetry Medical Decision Making - Medical Decision Making Was pt. sent in by a medical professional or institution (, PA, TREE [employer]PER, urgent care, hospital, or longterm...) When possible be specific @ -No Did you speak to anyone other than the patient for history (EMS, parent, family, police, friend...)? What history was obtained from this source @ -No Did you review nursing and triage notes (agree or disagree)? Why? @ -I reviewed and agree with nursing and triage notes Were old charts reviewed (outside hosp., previous admission, EMS record, old EKG, old radiological studies, urgent care reports/EKG's, longterm records)? Report findings @ -No old charts were reviewed Differential Diagnosis (chest pain, altered mental status, abdominal pain women, abdominal pain men, vaginal bleeding, weakness, fever, dyspnea, syncope, headache, dizziness, GI bleed, back pain, seizure, CVA, palpatations, mental health, musculoskeletal)? @ -[Differential Back Pain: Strain, zoster, cauda equina syndrome, epidural abscess, vertebral osteomyelitis, discitis, fracture, subluxation, disc herniation, DJD, spinal stenosis, dissection, AAA, pancreatitis, peptic ulcer disease, pyelonephritis, k idney stone, this is not meant to be an all-inclusive list. EKG interpreted by me (3pts min.). @ -None X-rays interpreted by me (1pt min.). @ -None done CT interpreted by me (1pt min.). @ -CT lumbar spine showing disc protrusion at L1-L2 CT pelvis shows dilated appendix without inflammatory changes, is air-filled no fluid collection U/S interpreted by me (1pt. min.). @ -None done What testing was considered but not performed or refused? (CT, X-rays, U/S, labs)? Why? @ -None What meds were considered but not given or refused? Why? @ -None Did you discuss the management of the patient with other professionals (professionals i.e. , PA, T[employer]PER, lab, RT, psych nurse, social media sr strategy manager, panel laminator, teacher, chief supply chain officer, case management coordinator)? Give summary @ -No Was smoking cessation discussed for >3mins.? @ -No Was critical care preformed (if so, how long)? @ -No Were there social determinants of health that impacted care today? How? (Homelessness, low income, unemployed, alcoholism, drug addiction, transportation, low edu. Level, literacy, decrease access to med. care, residential, rehab)? @ -No Was there de-escalation of care discussed even if they declined (Discuss DNR or withdrawal of care, Hospice)? DNR status @ -No What co-morbidities impacted this encounter? (DM, HTN, Smoking, COPD, CAD, Cancer, CVA, ARF, Chemo, Hep., AIDS, mental health diagnosis, sleep apnea, morbid obesity)? @ -None Was patient admitted / discharged? Hospital course, mention meds given and route, prescriptions, significant lab abnormalities, going to OR and other pertinent info. @ -[Discharge patient felt improved after analgesics, muscle spasms. This is related to lumbar back pain, disc bulging. He does have a dilated appendix without inflammatory changes changes, fever, leukocytosis he has no abdominal tenderness the right side. Patient is discharged with follow-up with orthopedic spine Undiagnosed new problem with uncertain prognosis? @ -No Drug Therapy requiring intensive monitoring for toxicity (Heparin, Nitro, Insulin, Cardizem)? @ -No Were any procedures done? @ -No Diagnosis/symptom? @ -Back pain Acute, or Chronic, or Acute on Chronic? @ -Acute Uncomplicated (without systemic symptoms) or Complicated (systemic symptoms)? @ -Uncomplicated Side effects of treatment? @ -No Exacerbation, Progression, or Severe Exacerbation? @ -No Poses a threat to life or bodily function? How? (Chest pain, [place], MA, pneumonia, PE, COPD, DKA, ARF, appy, cholecystitis, CVA, Diverticulitis, Homicidal, S uicidal, threat to staff... and all critical care pts) @ -No - Lab Data Result diagrams: 03/21/23 07:39 03/21/23 07:39 Lab Results 03/21/23 03/21/23 03/21/23 Range/Units 07:39 07:39 07:39 WBC 10.2 (3.8-10.6) k/uL RBC 5.89 (4.30-5.90) m/uL Hgb 14.2 (13.0-17.5) gm/dL Hct 42.7 (39.0-53.0) % MCV 72.4 L (80.0-100.0) fL MCH 24.2 L (25.0-35.0) pg MCHC 33.4 (31.0-37.0) g/dL RDW 13.6 (11.5-15.5) % Plt Count 291 (150-450) k/uL MPV 7.6 Neutrophils % 57 % Lymphocytes % 32 % Monocytes % 6 % Eosinophils % 2 % Basophils % 1 % Neutrophils # 5.8 (1.3-7.7) k/uL Lymphocytes # 3.3 (1.0-4.8) k/uL Monocytes # 0.7 (0-1.0) k/uL Eosinophils # 0.2 (0-0.7) k/uL Basophils # 0.1 (0-0.2) k/uL Microcytosis Slight Sodium 135 L (137-145) mmol/L Potassium 4.0 (3.5-5.1) mmol/L Chloride 103 (98-107) mmol/L Carbon Dioxide 25 (22-30) mmol/L Anion Gap 7 mmol/L BUN 11 (9-20) mg/dL Creatinine 0.98 (0.66-1.25) mg/dL Est GFR (CKD-EPI)AfAm >90 (>60 ml/min/1.73 sqM) Est GFR (CKD-EPI)NonAf 88 (>60 ml/min/1.73 sqM) Glucose 106 H (74-99) mg/dL Plasma Lactic Acid Jony 1.0 (0.7-2.0) mmol/L Calcium 9.4 (8.4-10.2) mg/dL Total Bilirubin 0.6 (0.2-1.3) mg/dL AST 41 (17-59) U/L ALT 100 H (4-49) U/L Alkaline Phosphatase 82 (38-126) U/L Total Protein 7.1 (6.3-8.2) g/dL Albumin 4.2 (3.5-5.0) g/dL Urine Color Urine Appearance (Clear) Urine pH (5.0-8.0) Ur Specific [place] (1.001-1.035) Urine Protein (Negative) Urine Glucose (UA) (Negative) Urine Ketones (Negative) Urine Blood (Negative) Urine Nitrite (Negative) Urine Bilirubin (Negative) Urine Urobilinogen (<2.0) mg/dL Ur Leukocyte Esterase (Negative) Urine RBC (0-5) /hpf Urine WBC (0-5) /hpf 03/21/23 Range/Units 09:15 WBC (3.8-10.6) k/uL RBC (4.30-5.90) m/uL Hgb (13.0-17.5) gm/dL Hct (39.0-53.0) % MCV (80.0-100.0) fL MCH (25.0-35.0) pg MCHC (31.0-37.0) g/dL RDW (11.5-15.5) % Plt Count (150-450) k/uL MPV Neutrophils % % Lymphocytes % % Monocytes % % Eosinophils % % Basophils % % Neutrophils # (1.3-7.7) k/uL Lymphocytes # (1.0-4.8) k/uL Monocytes # (0-1.0) k/uL Eosinophils # (0-0.7) k/uL Basophils # (0-0.2) k/uL Microcytosis Sodium (137-145) mmol/L Potassium (3.5-5.1) mmol/L Chloride (98-107) mmol/L Carbon Dioxide (22-30) mmol/L Anion Gap mmol/L BUN (9-20) mg/dL Creatinine (0.66-1.25) mg/dL Est GFR (CKD-EPI)AfAm (>60 ml/min/1.73 sqM) Est GFR (CKD-EPI)NonAf (>60 ml/min/1.73 sqM) Glucose (74-99) mg/dL Plasma Lactic Acid Jony (0.7-2.0) mmol/L Calcium (8.4-10.2) mg/dL Total Bilirubin (0.2-1.3) mg/dL AST (17-59) U/L ALT (4-49) U/L Alkaline Phosphatase (38-126) U/L Total Protein (6.3-8.2) g/dL Albumin (3.5-5.0) g/dL Urine Color Colorless Urine Appearance Clear (Clear) Urine pH 6.5 (5.0-8.0) Ur Specific [place] 1.004 (1.001-1.035) Urine Protein Negative (Negative) Urine Glucose (UA) Negative (Negative) Urine Ketones Negative (Negative) Urine Blood Trace H (Negative) Urine Nitrite Negative (Negative) Urine Bilirubin Negative (Negative) Urine Urobilinogen <2.0 (<2.0) mg/dL Ur Leukocyte Esterase Negative (Negative) Urine RBC 2 (0-5) /hpf Urine WBC <1 (0-5) /hpf Disposition Clinical Impression: Bulging lumbar disc Disposition: HOME SELF-CARE Condition: Stable Instructions (If sedation given, give patient instructions): Acute Low Back Pain (ED) Additional Instructions: Please return to the Emergency Department if symptoms worsen or any other mikal rns. Prescriptions: Hydrocortisone Acetate [Anusol-Hc] 25 mg RECTAL HS #20 suppositor Orphenadrine [Norflex] 100 mg PO Q12H #14 tab predniSONE 50 mg PO DAILY #5 tab Is patient prescribed a controlled substance at d/c from ED?: No Referrals: Sal Salmon MD [Primary Care Provider] - 1-2 days Estelle Melendez DO [Doctor of Osteopathic Medicine] - 1-2 days Time of Disposition: 10:50
[2023-03-21 08:07] LABS: Basophils # (A) 0.1 k/uL (0-0.2); Basophils % (A) 1 %; Eosinophils # (A) 0.2 k/uL (0-0.7); Eosinophils % (A) 2 %; HCT 42.7 % (39.0-53.0); HGB 14.2 gm/dL (13.0-17.5); Lymphocytes # (A) 3.3 k/uL (1.0-4.8); Lymphocytes % (A) 32 %; MCH 24.2 pg (25.0-35.0); MCHC 33.4 g/dL (31.0-37.0); MCV 72.4 fL (80.0-100.0); Mean Platelet Volume 7.6; Microcytosis Slight; Monocytes # (A) 0.7 k/uL (0-1.0); Monocytes % (A) 6 %; Neutrophils # (A) 5.8 k/uL (1.3-7.7); Neutrophils % (A) 57 %; Platelet Count 291 k/uL (150-450); RBC 5.89 m/uL (4.30-5.90); RDW 13.6 % (11.5-15.5); WBC 10.2 k/uL (3.8-10.6)
[2023-03-21 08:22] LABS: ALT 100 U/L (4-49); AST 41 U/L (17-59); African American GFR (CKD) >90 (>60 ml/min/1.73 sqM); Albumin 4.2 g/dL (3.5-5.0); Alkaline Phosphatase 82 U/L (38-126); Anion Gap 7 mmol/L; Blood Urea Nitrogen 11 mg/dL (9-20); Calcium 9.4 mg/dL (8.4-10.2); Carbon Dioxide 25 mmol/L (22-30); Chloride 103 mmol/L (98-107); Glucose 106 mg/dL (74-99); Non-African American GFR(CKD) 88 (>60 ml/min/1.73 sqM); Sodium 135 mmol/L (137-145); Total Bilirubin 0.6 mg/dL (0.2-1.3); Total Protein 7.1 g/dL (6.3-8.2)
--- NOTE | 2023-03-21 08:32 | CT ---
EXAMINATION TYPE: CT abdomen pelvis wo con DATE OF EXAM: 03/21/2023 COMPARISON: None HISTORY: Abdominal pain CT DLP: 971.9 mGycm Automated exposure control for dose reduction was used. TECHNIQUE: Helical acquisition of images was performed from the lung bases through the pelvis. FINDINGS: The lung bases are clear. Gallbladder is normal and there is no gallstones, wall thickening or pericholecystic fluid. There is no biliary ductal dilatation. There is no organomegaly involving the liver, pancreas or spleen. There are bilateral well circumscri bed adrenal masses most likely representing small renal cysts. The right cyst measures approximately 2 cm and left cyst measures approximately 1.3 cm. The bowel loops are normal in caliber and is no evidence of dilatation or obstruction. The appendix is visualized and is prominent in size measuring 8 mm but it is filled with air. There i s no wall thickening or periappendiceal inflammation. There is no free intraperitoneal air or fluid. There is no pelvic mass or adenopathy. There is mild prostatic hypertrophy. The osseous structures and soft tissues are intact. IMPRESSION: 1. Mildly dilated air-filled appendix without evidence for appendiceal or periappendiceal inflammatio n. 2. No bowel obstruction. 3. No free intraperitoneal air-fluid. 4. Bilateral adrenal masses/cysts which appear benign as described above
--- NOTE | 2023-03-21 08:35 | CT ---
EXAMINATION TYPE: CT lumbar spine wo con DATE OF EXAM: 03/21/2023 8:22 AM COMPARISON: None HISTORY: Lower back pain CT DLP: 971.9 mGycm Automated exposure control for dose reduction was used. Unenhanced CT of the lumbar spine was performed. Bone and soft tissue window settings are submitted as well as coronal and sagittal reconstructions. Findings: The lumbar vertebral segments are normal in height and alignment and there is no fracture or subluxat ion. The disc spaces are well-maintained in height. There is minimal spondylosis indicating minimal degene rative disc disease. There is a small focal disc bulge/protrusion of the L1-2 disc posteriorly and slightly to the left of midline. There is no spinal stenosis The facet joints and visualized sacrum and SI joints are normal. The paraspinal soft tissues unremarkable. IMPRESSION: 1. No lumbar spine fracture or malalignment. 2. No significant degenerative disease. 3. Small focal disc protrusion of the L1-2 disc as described above. 4. No significant facet arthrosis. 5. No spinal stenosis.
[2023-03-21] MEDS ORDERED: ORPHENADRINE 30 MG/ML 2 ML VIAL IVP STA (09:12)
[2023-03-21] MEDS ORDERED: methylPREDNISolone SOD SUCCI 125 MG/2 ML VIAL IV STA (09:12)
[2023-03-21 10:25] LABS: Appearance,Urine Clear (Clear); Bilirubin,Urine Negative (Negative); Blood,Urine Trace (Negative); Color,Urine Colorless; Glucose,Urine (UA) Negative (Negative); Ketones,Urine Negative (Negative); Leukocyte Esterase,Urine Negative (Negative); Nitrite,Urine Negative (Negative); PH, Urine 6.5 (5.0-8.0); Protein,Urine Negative (Negative); RBC,Urine 2 /hpf (0-5); Specific Gravity,Urine 1.004 (1.001-1.035); Urobilinogen,Urine <2.0 mg/dL (<2.0); WBC,Urine <1 /hpf (0-5)
[2023-03-21] MEDS ORDERED: HYDROcodone/APAP 5-325MG 1 EACH TAB PO STA (10:49)
[2023-03-21] MEDS ORDERED: ACET/COD 300 MG/30 MG STARTER PACK 6 TAB BTL PO STA (10:49)
[2023-03-21] MEDS ORDERED: traMADol 50 MG STARTER PACK 3 TAB BTL PO STA (13:15)
[2023-03-21 13:33] VITALS: BP 162/104; PULSE 88
== END 2023-03-21 13:27 | disposition home or self-care (01) ==
LOC: EC 06:25
DX: M51.36 Other intervertebral disc degeneration, lumbar region (principal); M51.26 Other intervertebral disc displacement, lumbar region; E11.9 Type 2 diabetes mellitus without complications; E78.5 Hyperlipidemia, unspecified; I10 Essential (primary) hypertension; Z87.891 Personal history of nicotine dependence; Z86.73 Personal history of transient ischemic attack (TIA), and cerebral infarction without residual deficits; Z79.899 Other long term (current) drug therapy; Z79.84 Long term (current) use of oral hypoglycemic drugs; Z79.82 Long term (current) use of aspirin; Z79.02 Long term (current) use of antithrombotics/antiplatelets; Z88.1 Allergy status to other antibiotic agents
CPT/HCPCS: 36415; 80053; 83605; 85025; 81001; 72131; 74176; 99284; 96374; 96375 ×4; J2360; J2930; J2405; J1885; J1170

== ENCOUNTER → 2023-04-16 | Outpatient (CLI) | payer OTHER ==
[2023-04-16 18:55] LABS: ALT 62 U/L (10-49); AST 28 U/L (14-35); Chol/HDL Ratio 2.34 Ratio; LDL Cholesterol,Calculated 43.9 mg/dL (0.0-131.0)
== END | disposition home or self-care (01) ==
LOC: LABWHC1 13:32
PROVIDERS: ATTEND Internal Medicine Cardiovascular Disease
DX: E78.2 Mixed hyperlipidemia (principal)
CPT/HCPCS: 36415; 80061; 84450; 84460